=== PATIENT | male | born 1935 | race African-American/Black ===

== ENCOUNTER 2016-09-29 12:17 | Inpatient (IN) | payer MEDICARE ==
[~2016-09-29] VITALS: Ht 172.7 cm; Wt 77.6 kg
[~2016-09-29 12:17] MED LIST: ACET325T9 PO; AMLO2.5T2 PO; ASPI-252 PO; ATEN25TA PO; CIPR500T94 PO; CLOP75TA27 PO; EZET1TAB4 PO; GLIP5TAB10 PO; LISI-334 PO; SIMV20TA3 PO; TAMS0.4C97 PO; TERA5CAP3 PO
[2016-09-29] MEDS ORDERED: ACETAMINOPHEN 500 MG TABLET PO ONE (12:45)
--- NOTE | 2016-09-29 12:49 | PHYS DOC ---
Past Medical History Past Medical History: CVA, Diabetes-Type II, Hypertension, [place], Seizure, Stroke , Other Additional Past Medical Histor: alcoholism Past Surgical History: Angioplasty, Other Additional Past Surgical Histo: with stent placement, cytoscopy Alcohol Use: None Drug Use: None Adult General Chief Complaint Chief Complaint: WEAKNESS/GENERALIZED HPI HPI Patient is a 81 year old male who presents with increased left sided weakness, fever and cough. Family states patient fell yesterday and was unable to get up. No injury from the fall, but the patient required extra assistance from the family to get back up. Patient denies any alcohol use. 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 Patient has a cough that is nonproductive. Patient was unaware that he had a fever. Patient has a history of a stroke with left hemiparesis, heart attack and diabetes. Review of Systems Review of Systems Constitutional: Denies fever or chills Eyes: Denies change in visual acuity, redness, or eye pain HENT: Denies nasal congestion or sore throat Respiratory: Denies shortness of breath. Positive cough Cardiovascular: No chest pain or palpitations GI: Denies abdominal pain, nausea, vomiting, bloody stools or diarrhea : Denies dysuria or hematuria Musculoskeletal: Denies new back pain or joint pain Integument: Denies rash or skin lesions Neurologic: Denies headache, new focal weakness or sensory changes Endocrine: Denies polyuria or polydipsia Current Medications Current Medications Current Medications Medications (Trade) Dose Ordered Sig/Ruby Start Time Stop Time Status Last Admin Dose Admin Acetaminophen (Tylenol) 500 mg 1X ONCE 09/29/16 12:45 09/29/16 12:48 DC 09/29/16 13:37 500 MG Allergies Allergies Allergies Coded Allergies Type Severity Reaction Last Updated Verified No Known Drug Allergies 05/01/14 No Physical Exam Physical Exam Constitutional: Well developed, well nourished, no acute distress, non-toxic appearance. HENT: Normocephalic, atraumatic, bilateral external ears normal, oropharynx moist, no oral exudates, nose normal. Eyes: PERRLA, EOMI, conjunctiva normal, no discharge. Neck: Normal range of motion, no tenderness, supple, no stridor. Cardiovascular:Heart rate regular rhythm, no murmur Lungs & Thorax: Bilateral breath sounds clear to auscultation Abdomen: Bowel sounds normal, soft, no tenderness, no masses, no pulsatile masses. Skin: Warm, dry, no erythema, no rash. Back: No tenderness, no CVA tenderness. Extremities: No tenderness, no cyanosis, no edema. Neurologic: Alert and oriented X 3, decreased left motor function, normal sensory function. Psychologic: Affect normal, judgement normal, mood normal. Current Patient Data Vital Signs Vital Signs Date Time Temp Pulse Resp B/P Pulse Ox O2 Delivery O2 Flow Rate FiO2 09/29/16 16:37 56 20 174/80 97 Room Air 09/29/16 12:27 101.3 101.3 Lab Values Laboratory Tests Test 09/29/16 13:20 White Blood Count 7.2x10^3/uL (4.0-11.0) Red Blood Count 5.14x10^6/uL (4.30-5.70) Hemoglobin 14.9g/dL (13.0-17.5) Hematocrit 44.4% (39.0-53.0) Mean Corpuscular Volume 86fL (79-100) Mean Corpuscular Hemoglobin 29pg (25-35) Mean Corpuscular Hemoglobin Concent 34g/dL (31-37) Red Cell Distribution Width 14.4% (11.5-14.5) Platelet Count 143x10^3/uL (140-400) Neutrophils (%) (Auto) 86% (31-73) H Lymphocytes (%) (Auto) 5% (24-48) L Monocytes (%) (Auto) 9% (0-9) Eosinophils (%) (Auto) 0% (0-3) Basophils (%) (Auto) 0% (0-3) Neutrophils # (Auto) 6.2x10^3uL (1.8-7.7) Lymphocytes # (Auto) 0.4x10^3/uL (1.0-4.8) L Monocytes # (Auto) 0.6x10^3/uL (0.0-1.1) Eosinophils # (Auto) 0.0x10^3/uL (0.0-0.7) Basophils # (Auto) 0.0x10^3/uL (0.0-0.2) Segmented Neutrophils % 78% (35-66) H Band Neutrophils % 6% (0-9) Lymphocytes % 6% (24-48) L Monocytes % 10% (0-10) Platelet Estimate Adequate (ADEQUATE) Sodium Level 141mmol/L (136-145) Potassium Level 4.0mmol/L (3.5-5.1) Chloride Level 103mmol/L (98-107) Carbon Dioxide Level 30mmol/L (21-32) Anion Gap 8 (6-14) Blood Urea Nitrogen 16mg/dL (8-26) Creatinine 1.2mg/dL (0.7-1.3) Estimated GFR (Cockcroft-Gault) 70.3 BUN/Creatinine Ratio 13 (6-20) Glucose Level 165mg/dL (70-99) H Lactic Acid Level 1.9mmol/L (0.4-2.0) Calcium Level 8.7mg/dL (8.5-10.1) Total Bilirubin 0.6mg/dL (0.2-1.0) Aspartate Amino Transferase (AST) 44U/L (15-37) H Alanine Aminotransferase (ALT) 29U/L (16-63) Alkaline Phosphatase 65U/L (46-116) Troponin I Quantitative 0.059ng/mL (0.000-0.055) Total Protein 6.6g/dL (6.4-8.2) Albumin 3.6g/dL (3.4-5.0) Albumin/Globulin Ratio 1.2 (1.0-1.7) Laboratory Tests 09/29/16 13:20 Laboratory Tests 09/29/16 13:20 EKG EKG NSR, HR 65, LAD, LAFB. No STEMI[] Radiology/Procedures Radiology/Procedures [] Course & Med Decision Making Course & Med Decision Making Pertinent Labs and Imaging studies reviewed. (See chart for details) Discussed case with at 1744 and he agreed to admit the patient for Dr. Keyes. Patient is not a TPA candidate because he has been having left sided increased weakness for greater than 12 hours. Dragon Disclaimer Dragon Disclaimer This electronic medical record was generated, in whole or in part, using a voice recognition dictation system. Departure Departure Impression: Primary Impression: Bradycardia Additional Impressions: TIA (transient ischemic attack) Fever Disposition: 09 ADMITTED INPATIENT Admitting Physician: Deepika Keyes Condition: STABLE Referrals: DEEPIKA KEYES MD (PCP) Problem Qualifiers Additional Impressions: TIA (transient ischemic attack) Transient cerebral ischemia type: unspecified Qualified Code: G45.9 - Transient cerebral ischemic attack, unspecified Fever Fever type: unspecified Qualified Code: R50.9 - Fever, unspecified DENVER RICHARDSON MD Sep 29, 2016 12:48
--- NOTE | 2016-09-29 13:04 | RAD ---
Portable chest, 09/29/2016: History: Cough and fever The heart size is normal. There is calcific plaquing of the aorta. The pulmonary vascularity is normal. No pulmonary infiltrates are seen. There is no evidence of pleural fluid. Moderate spurring is present in the spine. IMPRESSION: No acute cardiopulmonary abnormality is detected.
[2016-09-29 13:39] LABS: BASO % 0 % (0-3); EOS % 0 % (0-3); HEMATOCRIT 44.4 % (39.0-53.0); HEMOGLOBIN 14.9 g/dL (13.0-17.5); LYMPH # 0.4 x10^3/uL (1.0-4.8); LYMPH % 5 % (24-48); MEAN CORPUSCULAR HEMOGLOBIN 29 pg (25-35); MEAN CORPUSCULAR HGB CONC 34 g/dL (31-37); MEAN CORPUSCULAR VOLUME 86 fL (79-100); MONO % 9 % (0-9); NEUT % 86 % (31-73); PLATELET COUNT 143 x10^3/uL (140-400); RED BLOOD COUNT 5.14 x10^6/uL (4.30-5.70); RED CELL DISTRIBUTION WIDTH 14.4 % (11.5-14.5); WHITE BLOOD COUNT 7.2 x10^3/uL (4.0-11.0)
[2016-09-29 13:55] LABS: CALCIUM 8.7 mg/dL (8.5-10.1); CREATININE 1.2 mg/dL (0.7-1.3); GFR 70.3
[2016-09-29 14:10] LABS: ALBUMIN 3.6 g/dL (3.4-5.0); ALBUMIN/GLOBULIN RATIO 1.2 (1.0-1.7); TOTAL BILIRUBIN 0.6 mg/dL (0.2-1.0); TOTAL PROTEIN 6.6 g/dL (6.4-8.2)
--- NOTE | 2016-09-29 14:14 | EKG ---
[facility] [address] [place] [address] Test Date: 2016-09-29 Test Time: 12:34:31 Pat Name: JOSE EDUARDO POSADA Department: Room: Gender: M Coater Smoking Pipe: : [phone] Requested By: DENVER RICHARDSON Order Number: [id number] Reading MD: Measurements Intervals [place] Rate: 65 P: [place]: QRS: -44 QRSD: 110 T: 28 QT: 388 QTc: 408 Interpretive Statements IRREGULAR RHYTHM, NO P-WAVE FOUND ABNORMAL LEFT AXIS DEVIATION LEFT ANTERIOR FASCICULAR BLOCK ABNORMAL ECG RI6.01 No previous ECG available for comparison
[2016-09-29 14:34] LABS: PLT ESTIMATE ADEQUATE (ADEQUATE)
--- NOTE | 2016-09-29 16:34 | RAD ---
Exam performed: CT scan of the head without contrast. Date of Service: 09/29/16. Comparison: CT head without contrast from 01/01/14. Clinical History: Increasing Left-sided weakness. History of previous stroke Technique: Helical acquisitions are obtained from the foramen magnum to the vertex without intravenous administration of contrast. Findings: There is prominence of cortical sulci and ventricular system compatible with age related atrophy. There are areas of low-attenuation in both periventricular deep white matter suggesting small vessel ischemic changes. There is an area of encephalomalacia in the right parieto-occipital region with expected dilatation of the right occipital horn consistent with a chronic infarct. Normal charles-white differentiation is maintained. There is no extra axial fluid collection, intraparenchymal hemorrhage or mass lesion. The visualized portions of the orbits, paranasal sinuses and the mastoid air cells appear clear. The calvarium is intact. Impression: 1. Age-appropriate atrophy without any acute intracranial process. 2. Chronic right parieto-occipital encephalomalacia PQRS Compliance Statement: One or more of the following individualized dose reduction techniques were utilized for this examination: 1. Automated exposure control 2. Adjustment of the mA and/or kV according to patient size 3. Use of iterative reconstruction technique
[2016-09-29] MEDS ORDERED: LIDOCAINE 2% JELLY 6ML IN APPLICATOR. MM ONE (16:45)
--- NOTE | 2016-09-29 19:32 | ACF ---
Admission Forms Criteria TRANSIENT ISCHEMIC ATTACK (TIA) Clinical Indications for Admission to Inpatient Care (Place 'X' for any and all applicable criteria): Admission is indicated for ANY ONE of the following(1)(2)(3)(4)(5): [ ]I. Immediate inpatient procedure is needed (eg, endarterectomy). [ ]II. Inpatient admission required rather than observation care (Also use Transient Ischemic Attack (TIA): Observation Care Criteria as appropriate) because of ANY ONE of the following: [ ]a) Focal neurologic signs or symptoms persist or recurring [ ]b) Cardiac arrhythmias of immediate concern [ ]c) Clinically significant cardiac disorder identified that requires inpatient care (eg, severe valvular disease, atrial myxoma, cardiomyopathy) [ ]d) Hypertension requiring inpatient treatment [ ]e) Parenteral anticoagulation required (eg, alternative forms of anticoagulation not appropriate or not feasible) as indicated by ALL of the following(13): [ ]i) Temporary subtherapeutic anticoagulation unacceptable because of high risk of short-term venous or arterial thromboembolism due to ANY ONE of the following(14)(15)(16): [ ]1) Atrial fibrillation suspected as etiology of TIA(17)(18)(19)(20)(21) [ ]2) Venous thromboembolism within past 12 months [ ]3) Underlying malignancy [ ]4) Patient with mechanical cardiac valve(22)( 23) [ ]5) Underlying hypercoagulable state (eg, protein C or protein S deficiency antithrombin deficiency, antiphospholipid antibodies) [ ]6) Patient at temporary high risk of thromboembolism (eg, status post orthopedic surgery) [ ]ii) Contraindications to outpatient use of "bridging" agent or alternative oral anticoagulant[B] as indicated by ALL of the following: [ ]1) Contraindication to outpatient use of low- molecular-weight heparin as "bridging" agent as indicated by ANY ONE of the following(15): [ ]A. Documented current or history of heparin-induced thrombocytopenia(24) [ ]B. Severe thrombocytopenia (eg, platelet count less than 50,000/mm3 (92l038/L) [ ]C. Documented allergy to heparin, low- molecular-weight heparin, or pork products [ ]D. Renal failure (creatinine clearance less than 30 mL/min/1.73m2 (0.50mL/sec/1.73m2) or on dialysis) [ ]E. Inability to manage self-injection ( eg, by patient, caregiver, or visiting nurse) [ ]2) Contraindication to outpatient use of fondaparinux as "bridging" agent as indicated by ANY ONE of the following(25)(26 )(27)(28): [ ]A. Severe thrombocytopenia (eg, platelet count less than 50,000/mm3 (50 x109/L)) [ ]B.Hypersensitivity to fondaparinux, related drugs, or product components [ ]C.Renal failure (creatinine clearance less than 30 mL/min/1.73m2 (0.50mL/sec/1.73m2) or on dialysis) [ ]D.Inability to manage self-injection ( eg, by patient, caregiver, or visiting nurse [ ]3. Oral direct thrombin inhibitor (eg, dabigatran) or oral coagulation factor Xa inhibitor (eg, rivaroxaban, apixaban) not appropriate as oral anticoagulation (eg, indication not appropriate) or contraindicated (eg, hypersensitivity, creatinine clearance less than 15 mL/min/1.73m2 ( 0.25 mL/sec/1.73m2) or on dialysis). [ ]f) Continuous IV infusion of anticoagulant, platelet inhibitor, vasoactive or antiarrhythmia(18)(19) [ ]g) Other condition, treatment, or monitoring requiring inpatient admission [ ]III. Contraindications and/or Inappropriate clinical situations for Observational Care in patients with Transient Ischemic Attack (TIA), when ANY ONE of the following is required: [ ]a) Patient with persistent or severe neurological deficit 24 [ ]b) Patient with acute CVA or other identified pathology should be admitted to inpatient for further care 25 [X ]IV. General contraindications and/or Inappropriate clinical situations for Observational Care in patients with Transient Ischemic Attack (TIA), when ANY ONE of the following is required: [ X]a) Prediction of prolongation of LOS based on ANY ONE of the following may be considered as a contraindication for observational care 2, 3, 4, 5, 6, 7, 8, 9, 10, 11 [ X]i) Age > 65 yrs. [ ]ii) Patient arriving by ambulance [ ]iii) Patient with high acuity [ X]iv) Patient requiring vital sign monitoring [ ]v) Patient on IV medication [ ]b) Systolic blood pressures 180mmHg 3,12 [ ]c) Patient with altered mental status including delirium and other alteration of consciousness, (3) [ ]d) Patient whose discharge disposition will be to a long-term home or rehabilitation home should not be managed in Emergency Department Observation Unit. CMS rule requires 3 days hospital stay before such placement.3,13 [ ]e) Patient with failure to thrive due to broad array of etiologies 3,16,17 [ ]f) Inability to ambulate 3,14 Extended stay beyond goal length of stay may be needed for(4)(30)(32): [ ]a) Parenteral anticoagulation required [ ]b) Dangerous arrhythmia [ ]c) Cardiac valvular disorder, atrial myxoma, cardiomyopathy [ ]d) Uncontrolled severe hypertension [ ]e) Severe carotid stenosis [ ]f) Active comorbidities (eg, heart failure) [ ]g) Extracranial vertebrobasilar disease(29) [ ]h) Clinical evolution of TIA into cerebrovascular accident (stroke) The original [email or web address] content created by [email or web address] has been revised. The portions of thecontent which have been revised are identified through the use of italic text or in bold, and [facility] has neither reviewed nor approved the modified material. All other unmodified content is copyright [email or web address]. Please see references footnoted in the original [facility] edition 2016 Admission Criteria Met?: Yes PORSCHE EDWARDS Sep 29, 2016 19:32
[2016-09-29 20:30] VITALS: BP 169/91
[2016-09-29] MEDS ORDERED: DEXTROSE 50% 25 GM / 50ML DISP.SYRIN. IV PRN (21:00)
[2016-09-29 21:21] LABS: OBC FLU VALID
[2016-09-29] MEDS: IV NORMAL SALINE 1000ML BAG 1,000 ML IV SCH (22:00)
[2016-09-29] MEDS: SIMVASTATIN 20 MG TABLET PO SCH (22:03)
[2016-09-29] MEDS: TAMSULOSIN 0.4 MG CAP.ER.24H. PO SCH (22:03)
[2016-09-29] MEDS: OSELTAMIVIR 30 MG CAPSULE PO SCH (22:03)
[2016-09-29] MEDS: HEPARIN PF for SUB-Q USE 5,000 UNIT/0.5 ML VIAL. SQ SCH (22:08)
[2016-09-29 22:45] VITALS: BP 169/80
[2016-09-30 03:00] VITALS: BP 167/78
[2016-09-30] MEDS: IV NORMAL SALINE 1000ML BAG 1,000 ML IV SCH ×2 (05:51→17:23)
[2016-09-30 07:00] VITALS: BP 176/82
[2016-09-30 07:31] LABS: CREATININE 0.8 mg/dL (0.7-1.3); GFR 112.3; POTASSIUM 3.6 mmol/L (3.5-5.1)
[2016-09-30 07:42] LABS: BASO % 0 % (0-3); EOS % 1 % (0-3); HEMATOCRIT 38.8 % (39.0-53.0); LYMPH # 0.4 x10^3/uL (1.0-4.8); LYMPH % 11 % (24-48); MEAN CORPUSCULAR HEMOGLOBIN 29 pg (25-35); MEAN CORPUSCULAR HGB CONC 34 g/dL (31-37); MEAN CORPUSCULAR VOLUME 87 fL (79-100); MONO % 13 % (0-9); NEUT % 75 % (31-73); PLATELET COUNT 110 x10^3/uL (140-400); RED BLOOD COUNT 4.46 x10^6/uL (4.30-5.70); RED CELL DISTRIBUTION WIDTH 14.2 % (11.5-14.5)
[2016-09-30] MEDS: INSULIN ASPART 300 UNITS/3 ML INSULN.PEN SQ SCH ×3 (08:00→17:00)
[2016-09-30] MEDS: LISINOPRIL 40 MG TABLET. PO SCH (08:50)
[2016-09-30] MEDS: CLOPIDOGREL BISULFATE 75 MG TABLET PO SCH (08:50)
[2016-09-30] MEDS: TAMSULOSIN 0.4 MG CAP.ER.24H. PO SCH ×2 (08:50→21:05)
[2016-09-30] MEDS: ATENOLOL 25 MG TABLET PO SCH (08:50)
[2016-09-30] MEDS: OSELTAMIVIR 30 MG CAPSULE PO SCH ×2 (08:50→21:05)
[2016-09-30] MEDS: HEPARIN PF for SUB-Q USE 5,000 UNIT/0.5 ML VIAL. SQ SCH ×2 (08:54→21:10)
[2016-09-30 11:00] VITALS: BP 166/79
--- NOTE | 2016-09-30 13:57 | PDOC ---
Provider Note Provider Note Pt seen.H&P dictated. #[id number] HENRIK SPARKS MD Sep 30, 2016 13:57
[2016-09-30 14:53] VITALS: BP 150/80
--- NOTE | 2016-09-30 18:31 | HP ---
ADMIT DATE: 09/29/2016 LOCATION: [facility]. ATTENDING PHYSICIAN: Dr. Damian Manley. REASON FOR ADMISSION TO THE HOSPITAL: Weakness, influenza A. HISTORY OF PRESENT ILLNESS: The patient is an 81-year-old male patient of Dr. Damian Manley. The patient has a history of previous stroke, diabetes, hypertension, seizures and heart attack in the past, has been pretty functioning independently at home, he was found to be more weak lately. He was brought to the hospital, he had a fever of 101 and influenza A was positive. The patient was admitted to the hospital. PAST MEDICAL HISTORY: As mentioned above, has a history of CAD in the past, angioplasty and stent placement, diabetes, hypertension, old stroke, seizures. PAST SURGICAL HISTORY: Had a cardiac stent and cystoscopy. ALLERGIES: No known drug allergies. PERSONAL HISTORY: No history of smoking, alcohol or drug abuse. MEDICATIONS AT HOME: Tylenol, atenolol 25 mg daily, Plavix 75 mg daily, lisinopril 40 mg daily, simvastatin 20 mg daily, Flomax 0.4 daily. He was on glipizide 5 mg daily, but we will hold off while he is in the hospital. REVIEW OF SYSTEMS: CARDIAC: No chest pain. LUNGS: No cough, sputum. GASTROINTESTINAL: No nausea or vomiting. NEUROLOGICAL: Has some weakness, generalized. No localized weakness. Rest of the 14 systems was reviewed and negative. PHYSICAL EXAMINATION: GENERAL: The patient is not in any distress. VITAL SIGNS: At the time of admission shows a temperature 101.3, pulse 65, respirations 20, blood pressure 167/79 and 97% on room air. HEENT: Head is atraumatic. Pupils equal. Oral cavity, one teeth present. NECK: Supple. Thyroid not enlarged. JVD not elevated. CHEST: Symmetrical. CARDIOVASCULAR: S1, S2. LUNGS: Clear to auscultation. ABDOMEN: Soft, bowel sounds present, no mass palpable. EXTERNAL GENITALIA: No Panchal. RECTAL: Deferred. EXTREMITIES: No calf tenderness, no edema. Has some flexion contraction of the fingers in the left hand from an old stroke, has a good handgrip, moving upper and lower extremities equally. SKIN: Normal skin turgor. Pulses 1+. NEUROLOGIC: As mentioned above, no definitive weaknesses. LABORATORY DATA: Shows a white count of 7, hemoglobin 15, platelets 143. Electrolytes show sodium 141, potassium 4.0, chloride 103, bicarb 30, BUN 16, creatinine 1.2, glucose 165. LFTs were normal. Troponin 0.[address] head, old stroke. Chest x-ray, was no acute abnormality. EKG negative for ischemia. FINAL IMPRESSION: 1. Fever secondary to influenza A. 2. Weakness secondary to flu. 3. History of old cerebrovascular accident, seizures history and also history of coronary artery disease, previous stent, diabetes, hypertension, hyperlipidemia. PLAN: At this time, admit to hospital, hydrate with IV fluids, isolation, Tamiflu for influenza and see how the patient's condition improves in the next 24-48 hours. HENRIK SPARKS MD DR: DMITRY/suyapa JOB#: [id number] / [id number] HENRIK Henao MD, PRATIP MD MTDD
[2016-09-30 19:00] VITALS: BP 153/77
[2016-09-30] MEDS: ACETAMINOPHEN 325 MG TABLET. PO PRN (21:05)
[2016-09-30] MEDS: SIMVASTATIN 20 MG TABLET PO SCH (21:05)
[2016-09-30 23:00] VITALS: BP 168/80
[2016-10-01 02:46] VITALS: BP 149/52
[2016-10-01] MEDS: IV NORMAL SALINE 1000ML BAG 1,000 ML IV SCH (04:45)
[2016-10-01 07:00] VITALS: BP 158/81
[2016-10-01] MEDS: INSULIN ASPART 300 UNITS/3 ML INSULN.PEN SQ SCH ×3 (08:00→17:00)
[2016-10-01] MEDS: CLOPIDOGREL BISULFATE 75 MG TABLET PO SCH (08:43)
[2016-10-01] MEDS: TAMSULOSIN 0.4 MG CAP.ER.24H. PO SCH ×2 (08:43→21:08)
[2016-10-01] MEDS: ATENOLOL 25 MG TABLET PO SCH (08:44)
[2016-10-01] MEDS: LISINOPRIL 40 MG TABLET. PO SCH (08:44)
[2016-10-01] MEDS: OSELTAMIVIR 30 MG CAPSULE PO SCH ×2 (08:46→08:50)
[2016-10-01] MEDS: HEPARIN PF for SUB-Q USE 5,000 UNIT/0.5 ML VIAL. SQ SCH ×2 (08:50→21:16)
[2016-10-01 11:00] VITALS: BP 167/79
--- NOTE | 2016-10-01 11:09 | PDOC ---
PROGRESS NOTES Subjective Subjective low grade fever 100, otherwise doing well Objective Objective Vital Signs Date Time Temp Pulse Resp B/P Pulse Ox O2 Delivery O2 Flow Rate FiO2 10/01/16 08:44 93 158/81 10/01/16 08:00 Room Air 10/01/16 07:00 97.9 18 94 97.9 Intake and Output 10/01/16 07:00 Intake Total 1478 ml Balance 1478 ml Intake Oral 700 ml IV Total 778 ml # Voids 9 Physical Exam Abdomen: Normal bowel sounds, Soft Heart: Regular rate, Normal S1, Normal S2 Extremities: No clubbing, No cyanosis General: Alert, Oriented X3 MUSCULOSKELETAL: No swelling Neck: Supple Neuro: Normal speech Psych/Mental Status: Mental status NL Skin: No breakdown Diagnosis Problem List Problems Medical Problems: (1) Bradycardia Status: Acute (2) CVA, old, hemiparesis Status: Acute (3) Fever Status: Acute (4) TIA (transient ischemic attack) Status: Acute Assessment Assessment Problems Medical Problems: (1) Bradycardia Status: Acute (2) CVA, old, hemiparesis Status: Acute (3) Fever Status: Acute (4) TIA (transient ischemic attack) Status: Acute FINAL IMPRESSION: 1. Fever secondary to influenza A. 2. Weakness secondary to flu. 3. History of old cerebrovascular accident, seizures history and also history of coronary artery disease, previous stent, diabetes, hypertension, hyperlipidemia. PLAN: d/c iv fluids pt/ot Tamiflu. ?home tomorrow. At this time, admit to hospital, hydrate with IV fluids, isolation, Tamiflu for influenza and see how the patient's condition improves in the next 24-48 hours. Problems: Plan Plan of Care Problems Medical Problems: (1) Bradycardia Status: Acute (2) CVA, old, hemiparesis Status: Acute (3) Fever Status: Acute (4) TIA (transient ischemic attack) Status: Acute Comment Review of Relevant I have reviewed the following items lloyd (where applicable) has been applied. Labs Laboratory Tests Test 09/30/16 11:54 09/30/16 16:45 09/30/16 20:43 10/01/16 08:08 Glucose (Fingerstick) 144mg/dL (70-99) 89mg/dL (70-99) 133mg/dL (70-99) 93mg/dL (70-99) Microbiology 09/29/16 Blood Culture - Preliminary, Resulted NO GROWTH AFTER 1 DAY Medications Current Medications Oseltamivir Phosphate (Tamiflu) 75 mg BID PO Last administered on 10/01/16t 08: 46; Start 10/01/16 at 08:45; Stop 10/06/16 at 08:44 Vitals/I & O Vital Sign - Last 24 Hours 09/30/16 09/30/16 09/30/16 09/30/16 14:53 19:00 20:00 23:00 Temp 97.6 100.4 97.9 97.6 100.4 97.9 Pulse 63 66 102 Resp 18 20 20 B/P 150/80 153/77 168/80 Pulse Ox 95 94 96 O2 Delivery Room Air Room Air Room Air Room Air 10/01/16 10/01/16 10/01/16 10/01/16 02:46 07:00 08:00 08:44 Temp 99.8 97.9 99.8 97.9 Pulse 88 87 93 Resp 18 18 B/P 149/52 158/81 158/81 Pulse Ox 98 94 O2 Delivery Room Air Room Air Room Air 10/01/16 08:44 Pulse 93 B/P 158/81 Intake and Output 09/30/16 09/30/16 10/01/16 15:00 23:00 07:00 Intake Total 1278 ml 200 ml Balance 1278 ml 200 ml HENRIK SPARKS MD Oct 01, 2016 11:09
[2016-10-01 15:00] VITALS: BP 133/66
[2016-10-01 19:20] VITALS: BP 138/73
[2016-10-01] MEDS: OSELTAMIVIR 75 MG CAPSULE PO SCH (21:08)
[2016-10-01] MEDS: SIMVASTATIN 20 MG TABLET PO SCH (21:08)
[2016-10-01 23:00] VITALS: BP 145/56
[2016-10-02 03:30] VITALS: BP 137/90
[2016-10-02 07:00] VITALS: BP 154/80
[2016-10-02] MEDS: INSULIN ASPART 300 UNITS/3 ML INSULN.PEN SQ SCH ×3 (08:00→17:00)
[2016-10-02] MEDS: TAMSULOSIN 0.4 MG CAP.ER.24H. PO SCH ×2 (08:58→20:41)
[2016-10-02] MEDS: OSELTAMIVIR 75 MG CAPSULE PO SCH ×2 (08:58→20:41)
[2016-10-02] MEDS: CLOPIDOGREL BISULFATE 75 MG TABLET PO SCH (08:58)
[2016-10-02] MEDS: LISINOPRIL 40 MG TABLET. PO SCH (08:59)
[2016-10-02] MEDS: ATENOLOL 25 MG TABLET PO SCH (08:59)
[2016-10-02] MEDS: FAMOTIDINE 20 MG TABLET. PO SCH ×2 (09:00→20:41)
--- NOTE | 2016-10-02 09:01 | PDOC ---
SRINIVASAN WESLEY RABBIT BREEDER 10/02/16 0901: IM PROGRESS NOTES- Subjective Subjective feeling okay Objective Objective no distress Vitals Vital Signs Date Time Temp Pulse Resp B/P Pulse Ox O2 Delivery O2 Flow Rate FiO2 10/02/16 07:00 98.6 53 18 154/80 96 Room Air 98.6 Input & Output Intake and Output 10/02/16 07:00 Intake Total 1020 ml Balance 1020 ml Intake Oral 1020 ml # Voids 5 Physical Exam Physical Exam General appearance - alert, ill appearing, and in no distress Mental Status - alert, oriented to person, place, and time, affect appropriate to mood, poor historian Head - normal Chest - clear to auscultation, no wheezes, rales or rhonchi Heart - S1 and S2 normal Abdomen - soft, nontender, nondistended, BS + Neurological - poor memory recall chronic, L sided weakness chronic, no acute neurological deficits noted. Musculoskeletal - no muscular tenderness noted Extremities - no pedal edema Skin - warm and dry Labs Laboratory Tests Test 09/30/16 11:54 09/30/16 16:45 09/30/16 20:43 10/01/16 08:08 Glucose (Fingerstick) 144mg/dL (70-99) 89mg/dL (70-99) 133mg/dL (70-99) 93mg/dL (70-99) Test 10/01/16 12:14 10/01/16 16:57 10/01/16 21:07 10/02/16 07:28 Glucose (Fingerstick) 126mg/dL (70-99) 109mg/dL (70-99) 158mg/dL (70-99) 113mg/dL (70-99) Laboratory Tests Test 10/01/16 12:14 10/01/16 16:57 10/01/16 21:07 10/02/16 07:28 Glucose (Fingerstick) 126mg/dL (70-99) 109mg/dL (70-99) 158mg/dL (70-99) 113mg/dL (70-99) Meds Current Medications Oseltamivir Phosphate (Tamiflu) 75 mg BID PO Last administered on 10/01/16t 21: 08; Start 10/01/16 at 21:00; Stop 2/8/17 at 10:00 Assessment Assessment Problems Medical Problems: (1) Bradycardia Status: Acute (2) CVA, old, hemiparesis Status: Acute (3) Fever Status: Acute (4) TIA (transient ischemic attack) Status: Acute IMPRESSION : 1. influenzae A 2, Bacteremia with +BC grm + cocci clusters 3. hx CVA with left hemiparesis 4. CAD s/p stent 5. HTN 6. HLD 7. hyponatremia improved 8. DM, type II Hba1C 7.0 controlled 9. chronic moderate PCL malnutrition 10. CKD II (Cr Cl 59) PLAN: influenzae A Tamiflu T admit 101.3F Tm 10/01 99.8F lactic acid neg 1.9 Hold discharge Bacteremia BC + 1/4 gram + cocci in clusters ID consult DM II FSBS/SSI BS 89-144 diet control weakness/debility PT OT consult DVT/GI prophylaxis Heparin subq q 12H pepcid oral For further plan of care, please refer to the orders. Hold discharge until eval per ID -plan DC home tomorrow if ID agree. Plan Plan For more details regarding further plans, please refer to the orders. DEEPIKA KEYES MD 10/02/16 1015: IM PROGRESS NOTES- Assessment Assessment The patient was seen and examined by me. Chart reviewed and plan of care formulated. Discussed with, reviewed and agree with BUSINESS ASST's notes, plan of care and orders with modifications as necessary. For more details regarding further plans, please refer to the orders. SRINIVASAN WESLEY APRN Oct 02, 2016 09:01 DEEPIKA KEYES MD Oct 02, 2016 10:15
[2016-10-02] MEDS: HEPARIN PF for SUB-Q USE 5,000 UNIT/0.5 ML VIAL. SQ SCH ×2 (09:02→20:47)
[2016-10-02 09:34] LABS: BASO % 1 % (0-3); EOS % 0 % (0-3); HEMATOCRIT 39.9 % (39.0-53.0); HEMOGLOBIN 13.5 g/dL (13.0-17.5); LYMPH # 0.8 x10^3/uL (1.0-4.8); LYMPH % 24 % (24-48); MEAN CORPUSCULAR HEMOGLOBIN 29 pg (25-35); MEAN CORPUSCULAR HGB CONC 34 g/dL (31-37); MEAN CORPUSCULAR VOLUME 86 fL (79-100); MONO % 10 % (0-9); NEUT % 64 % (31-73); PLATELET COUNT 124 x10^3/uL (140-400); RED BLOOD COUNT 4.65 x10^6/uL (4.30-5.70); RED CELL DISTRIBUTION WIDTH 14.2 % (11.5-14.5); WHITE BLOOD COUNT 3.4 x10^3/uL (4.0-11.0)
[2016-10-02 09:51] LABS: CALCIUM 8.1 mg/dL (8.5-10.1); GFR 86.8; POTASSIUM 4.1 mmol/L (3.5-5.1)
[2016-10-02 11:00] VITALS: BP 166/82
[2016-10-02] MEDS ORDERED: VANCOMYCIN 2 GM in IV NORMAL SALINE 500ML BAG 500 ML IV ONE (11:00)
--- NOTE | 2016-10-02 11:39 | PDOC ---
Infectious Disease Note ROS ROS GEN: Denies fevers, chills, sweats HEENT: Denies blurred vision, sore throat CV: Denies chest pain RESP: Denies shortness of air, cough GI: Denies n/v/d NEURO: Denies confusion, dizziness MSK: Denies weakness, joint pain/swelling Vital Sign Vital Signs Vital Signs Date Time Temp Pulse Resp B/P Pulse Ox O2 Delivery O2 Flow Rate FiO2 10/02/16 11:00 98.1 55 20 166/82 95 Room Air 98.1 Physical Exam PHYSICAL EXAM GENERAL: NAD, Alert HEENT: PERRL, OC/OP NECK: Supple, no JVD, no LN LUNGS: Clear HEART: S1S2, no gallop, no murmur ABD: Soft, NT, no organomegaly, no rebound EXT: No edema, no cyanosis COST MANAGER: Alert, oriented x 3, no focal neurologic deficit SKIN: No rash IV: ok Labs Lab Laboratory Tests Test 10/01/16 12:14 10/01/16 16:57 10/01/16 21:07 10/02/16 07:28 Glucose (Fingerstick) 126mg/dL (70-99) 109mg/dL (70-99) 158mg/dL (70-99) 113mg/dL (70-99) Test 10/02/16 09:10 White Blood Count 3.4x10^3/uL (4.0-11.0) Red Blood Count 4.65x10^6/uL (4.30-5.70) Hemoglobin 13.5g/dL (13.0-17.5) Hematocrit 39.9% (39.0-53.0) Mean Corpuscular Volume 86fL (79-100) Mean Corpuscular Hemoglobin 29pg (25-35) Mean Corpuscular Hemoglobin Concent 34g/dL (31-37) Red Cell Distribution Width 14.2% (11.5-14.5) Platelet Count 124x10^3/uL (140-400) Neutrophils (%) (Auto) 64% (31-73) Lymphocytes (%) (Auto) 24% (24-48) Monocytes (%) (Auto) 10% (0-9) Eosinophils (%) (Auto) 0% (0-3) Basophils (%) (Auto) 1% (0-3) Neutrophils # (Auto) 2.2x10^3uL (1.8-7.7) Lymphocytes # (Auto) 0.8x10^3/uL (1.0-4.8) Monocytes # (Auto) 0.4x10^3/uL (0.0-1.1) Eosinophils # (Auto) 0.0x10^3/uL (0.0-0.7) Basophils # (Auto) 0.0x10^3/uL (0.0-0.2) Sodium Level 139mmol/L (136-145) Potassium Level 4.1mmol/L (3.5-5.1) Chloride Level 104mmol/L (98-107) Carbon Dioxide Level 30mmol/L (21-32) Anion Gap 5 (6-14) Blood Urea Nitrogen 12mg/dL (8-26) Creatinine 1.0mg/dL (0.7-1.3) Estimated GFR (Cockcroft-Gault) 86.8 Glucose Level 133mg/dL (70-99) Calcium Level 8.1mg/dL (8.5-10.1) Magnesium Level 2.0mg/dL (1.8-2.4) Objective Assessment Influenza A 2/3 GPC bacteremia 2/3 Fever Leukopenia - likely viral response DM Plan Plan of Care Cont tamilfu Add Vanc but suspect Contamination F/u labs and cults Thank you # [id number] FREEMAN WHALEN MD Oct 02, 2016 11:39
[2016-10-02 15:00] VITALS: BP 130/56
[2016-10-02] MEDS: VANCOMYCIN PER PHARMACY MC PRN ×2 (15:00→15:09)
[2016-10-02 19:25] VITALS: BP 140/71
[2016-10-02] MEDS: SIMVASTATIN 20 MG TABLET PO SCH (20:41)
[2016-10-02] MEDS: ACETAMINOPHEN 325 MG TABLET. PO PRN (20:41)
[2016-10-02 23:35] VITALS: BP 132/78
[2016-10-03] MEDS ORDERED: VANCOMYCIN 1.25 GM in IV NORMAL SALINE 250ML 250 ML IV SCH (01:00)
[2016-10-03 03:46] VITALS: BP 137/63
--- NOTE | 2016-10-03 05:20 | CONS ---
DATE OF CONSULTATION: 10/02/2016 The patient is in room 652. REQUESTING PHYSICIAN: Dr. Manley. REASON FOR CONSULTATION: Bacteremia. HISTORY OF PRESENT ILLNESS: The patient is a pleasant 81-year-old gentleman with history of previous stroke as well as diabetes who has a fairly acute onset of weakness at home. Apparently, he states that his states he did not look well and he was brought to [facility], had a fever up to 101. He subsequently was found to have influenza A. He started on Tamiflu. Fevers have fallen down. Blood cultures were obtained on the , today one of them returned positive for gram-positive cocci and hence we have been consulted. Currently, the patient is lying in bed, states he is feeling somewhat better. He had a good breakfast and denies any active fever, chills or sweats. He has no headaches or sinus issues or sore throat or cough. No chest pain. No dysuria, frequency or urgency. Denies any falls or trauma. PAST MEDICAL HISTORY: Positive for coronary artery disease, diabetes, hypertension, previous CVA, history of seizures. PAST SURGICAL HISTORY: Positive for angioplasty, cystoscopy and stent placements. REVIEW OF SYSTEMS: Otherwise negative except for mentioned above. ALLERGIES: No known drug allergies. SOCIAL HISTORY: Negative for tobacco, although he does have a distant history of that, no alcohol or drug abuse. FAMILY HISTORY: Noncontributory. CURRENT MEDICATIONS: Include Tamiflu, Plavix, subcutaneous heparin, Prinivil, insulin, Zocor, Flomax. Other meds are available and reviewed in the chart. PHYSICAL EXAMINATION: VITAL SIGNS: He has been afebrile recently, did have a temperature of 100.4 axillary on the , temperature currently 98.1, pulse 55, respirations 20, blood pressure 166/82, satting 95% on room air. CONSTITUTIONAL: He is very pleasant, cooperative, in no acute distress. He is lying in bed. HEENT: Pupils are status post cataract surgery. Oral cavity, pharynx is clear. NECK: Supple. Neck was without JVD. LUNGS: Clear to auscultation bilaterally. HEART: S1, S2. ABDOMEN: Soft, nontender, nondistended, positive bowel sounds. EXTREMITIES: No clubbing, cyanosis or gross edema. SKIN: Warm to touch without signs of rash. NEUROLOGIC: He moved all extremities. PSYCHIATRIC: His affect was pleasant. LABORATORY VALUES: White count 3.4, hemoglobin of 13.5, platelets of 124 with neutrophils of 64, lymphs were 24. Glucose 133 and creatinine of 1. RADIOLOGICAL STUDIES: Chest x-ray from the 3rd, no acute pulmonary abnormality detected. CT scan of the head, age appropriate atrophy, chronic right parietal occipital encephalomalacia, no acute process. IMPRESSION: 1. Influenza A from the 3rd. 2. Gram-positive bacteremia from the 3rd. 3. Fever. 4. Leukopenia, likely viral response. 5. Diabetes. RECOMMENDATIONS: For now, given the gram-positive bacteremia, we will add vancomycin. We will continue the Tamiflu. I suspect his cultures are contamination, but will await for confirmation. Follow up on labs and cultures. Thank you for allowing me to participate in the patient's care. If you have any questions, please do not hesitate to contact me. FREEMAN WHALEN MD DR: GORDON/suyapa JOB#: [id number] / [id number]
[2016-10-03 08:00] VITALS: BP 142/55
[2016-10-03] MEDS: INSULIN ASPART 300 UNITS/3 ML INSULN.PEN SQ SCH ×3 (08:00→17:00)
[2016-10-03 08:02] LABS: BASO % 1 % (0-3); EOS % 1 % (0-3); HEMATOCRIT 35.8 % (39.0-53.0); HEMOGLOBIN 12.1 g/dL (13.0-17.5); LYMPH # 0.7 x10^3/uL (1.0-4.8); LYMPH % 19 % (24-48); MEAN CORPUSCULAR HEMOGLOBIN 29 pg (25-35); MEAN CORPUSCULAR HGB CONC 34 g/dL (31-37); MEAN CORPUSCULAR VOLUME 86 fL (79-100); MONO % 9 % (0-9); NEUT % 71 % (31-73); PLATELET COUNT 116 x10^3/uL (140-400); RED BLOOD COUNT 4.14 x10^6/uL (4.30-5.70); RED CELL DISTRIBUTION WIDTH 14.1 % (11.5-14.5); WHITE BLOOD COUNT 3.8 x10^3/uL (4.0-11.0)
--- NOTE | 2016-10-03 08:47 | PDOC ---
Infectious Disease Note Subjective Subjective No complaints this morning. ROS ROS GEN: Denies fevers, chills, sweats HEENT: Denies blurred vision, sore throat CV: Denies chest pain RESP: Denies shortness of air, cough GI: Denies n/v/d NEURO: Denies confusion, dizziness MSK: Denies weakness, joint pain/swelling Vital Sign Vital Signs Vital Signs Date Time Temp Pulse Resp B/P Pulse Ox O2 Delivery O2 Flow Rate FiO2 10/03/16 03:46 98.4 54 18 137/63 97 Room Air 98.4 Physical Exam PHYSICAL EXAM GENERAL: NAD, Alert HEENT: PERRL, OC/OP - clear NECK: Supple, no JVD, no LN LUNGS: Clear HEART: S1S2, no gallop, no murmur ABD: Soft, NT, no organomegaly, no rebound EXT: No edema, no cyanosis BUSINESS SUPPORT MANAGER: Alert, oriented x 3, no focal neurologic deficit SKIN: No rash IV: ok Labs Lab Laboratory Tests Test 10/02/16 09:10 10/02/16 11:58 10/02/16 16:51 10/02/16 21:33 White Blood Count 3.4x10^3/uL (4.0-11.0) Red Blood Count 4.65x10^6/uL (4.30-5.70) Hemoglobin 13.5g/dL (13.0-17.5) Hematocrit 39.9% (39.0-53.0) Mean Corpuscular Volume 86fL (79-100) Mean Corpuscular Hemoglobin 29pg (25-35) Mean Corpuscular Hemoglobin Concent 34g/dL (31-37) Red Cell Distribution Width 14.2% (11.5-14.5) Platelet Count 124x10^3/uL (140-400) Neutrophils (%) (Auto) 64% (31-73) Lymphocytes (%) (Auto) 24% (24-48) Monocytes (%) (Auto) 10% (0-9) Eosinophils (%) (Auto) 0% (0-3) Basophils (%) (Auto) 1% (0-3) Neutrophils # (Auto) 2.2x10^3uL (1.8-7.7) Lymphocytes # (Auto) 0.8x10^3/uL (1.0-4.8) Monocytes # (Auto) 0.4x10^3/uL (0.0-1.1) Eosinophils # (Auto) 0.0x10^3/uL (0.0-0.7) Basophils # (Auto) 0.0x10^3/uL (0.0-0.2) Sodium Level 139mmol/L (136-145) Potassium Level 4.1mmol/L (3.5-5.1) Chloride Level 104mmol/L (98-107) Carbon Dioxide Level 30mmol/L (21-32) Anion Gap 5 (6-14) Blood Urea Nitrogen 12mg/dL (8-26) Creatinine 1.0mg/dL (0.7-1.3) Estimated GFR (Cockcroft-Gault) 86.8 Glucose Level 133mg/dL (70-99) Calcium Level 8.1mg/dL (8.5-10.1) Magnesium Level 2.0mg/dL (1.8-2.4) Glucose (Fingerstick) 129mg/dL (70-99) 150mg/dL (70-99) 126mg/dL (70-99) Test 10/03/16 07:25 10/03/16 08:23 White Blood Count 3.8x10^3/uL (4.0-11.0) Red Blood Count 4.14x10^6/uL (4.30-5.70) Hemoglobin 12.1g/dL (13.0-17.5) Hematocrit 35.8% (39.0-53.0) Mean Corpuscular Volume 86fL (79-100) Mean Corpuscular Hemoglobin 29pg (25-35) Mean Corpuscular Hemoglobin Concent 34g/dL (31-37) Red Cell Distribution Width 14.1% (11.5-14.5) Platelet Count 116x10^3/uL (140-400) Neutrophils (%) (Auto) 71% (31-73) Lymphocytes (%) (Auto) 19% (24-48) Monocytes (%) (Auto) 9% (0-9) Eosinophils (%) (Auto) 1% (0-3) Basophils (%) (Auto) 1% (0-3) Neutrophils # (Auto) 2.7x10^3uL (1.8-7.7) Lymphocytes # (Auto) 0.7x10^3/uL (1.0-4.8) Monocytes # (Auto) 0.3x10^3/uL (0.0-1.1) Eosinophils # (Auto) 0.0x10^3/uL (0.0-0.7) Basophils # (Auto) 0.0x10^3/uL (0.0-0.2) Glucose (Fingerstick) 109mg/dL (70-99) Objective Assessment Influenza A 2/3 GPC bacteremia 2/3 Fever Leukopenia - likely viral response DM Plan Plan of Care Cont tamilfu Discont Vanc F/u labs and cults FREEMAN WHALEN MD Oct 03, 2016 08:47
[2016-10-03 08:48] LABS: CALCIUM 7.8 mg/dL (8.5-10.1); CREATININE 0.9 mg/dL (0.7-1.3); POTASSIUM 3.4 mmol/L (3.5-5.1)
[2016-10-03] MEDS: HEPARIN PF for SUB-Q USE 5,000 UNIT/0.5 ML VIAL. SQ SCH ×2 (09:00→23:05)
--- NOTE | 2016-10-03 09:20 | PDOC ---
SRINIVASAN WESLEY DIALYSIS PATIENT CARE TECHNICIAN 10/03/16 0920: IM PROGRESS NOTES- Subjective Subjective feeling okay Objective Objective no distress Vitals Vital Signs Date Time Temp Pulse Resp B/P Pulse Ox O2 Delivery O2 Flow Rate FiO2 10/03/16 08:00 98.9 48 16 142/55 91 Room Air 98.9 Input & Output Intake and Output 10/03/16 07:00 Intake Total 1400 ml Balance 1400 ml Intake Oral 900 ml IV Total 500 ml # Voids 2 Physical Exam Physical Exam General appearance - alert, ill appearing, and in no distress Mental Status - alert, oriented to person, place, and time, affect appropriate to mood, poor historian Head - normal Chest - clear to auscultation, no wheezes, rales or rhonchi Heart - S1 and S2 normal Abdomen - soft, nontender, nondistended, BS + Neurological - poor memory recall chronic, L sided weakness chronic, no acute neurological deficits noted. Musculoskeletal - no muscular tenderness noted Extremities - no pedal edema Skin - warm and dry Labs Laboratory Tests Test 10/01/16 12:14 10/01/16 16:57 10/01/16 21:07 10/02/16 07:28 Glucose (Fingerstick) 126mg/dL (70-99) 109mg/dL (70-99) 158mg/dL (70-99) 113mg/dL (70-99) Test 10/02/16 09:10 10/02/16 11:58 10/02/16 16:51 10/02/16 21:33 White Blood Count 3.4x10^3/uL (4.0-11.0) Red Blood Count 4.65x10^6/uL (4.30-5.70) Hemoglobin 13.5g/dL (13.0-17.5) Hematocrit 39.9% (39.0-53.0) Mean Corpuscular Volume 86fL (79-100) Mean Corpuscular Hemoglobin 29pg (25-35) Mean Corpuscular Hemoglobin Concent 34g/dL (31-37) Red Cell Distribution Width 14.2% (11.5-14.5) Platelet Count 124x10^3/uL (140-400) Neutrophils (%) (Auto) 64% (31-73) Lymphocytes (%) (Auto) 24% (24-48) Monocytes (%) (Auto) 10% (0-9) Eosinophils (%) (Auto) 0% (0-3) Basophils (%) (Auto) 1% (0-3) Neutrophils # (Auto) 2.2x10^3uL (1.8-7.7) Lymphocytes # (Auto) 0.8x10^3/uL (1.0-4.8) Monocytes # (Auto) 0.4x10^3/uL (0.0-1.1) Eosinophils # (Auto) 0.0x10^3/uL (0.0-0.7) Basophils # (Auto) 0.0x10^3/uL (0.0-0.2) Sodium Level 139mmol/L (136-145) Potassium Level 4.1mmol/L (3.5-5.1) Chloride Level 104mmol/L (98-107) Carbon Dioxide Level 30mmol/L (21-32) Anion Gap 5 (6-14) Blood Urea Nitrogen 12mg/dL (8-26) Creatinine 1.0mg/dL (0.7-1.3) Estimated GFR (Cockcroft-Gault) 86.8 Glucose Level 133mg/dL (70-99) Calcium Level 8.1mg/dL (8.5-10.1) Magnesium Level 2.0mg/dL (1.8-2.4) Glucose (Fingerstick) 129mg/dL (70-99) 150mg/dL (70-99) 126mg/dL (70-99) Test 10/03/16 07:25 10/03/16 08:23 White Blood Count 3.8x10^3/uL (4.0-11.0) Red Blood Count 4.14x10^6/uL (4.30-5.70) Hemoglobin 12.1g/dL (13.0-17.5) Hematocrit 35.8% (39.0-53.0) Mean Corpuscular Volume 86fL (79-100) Mean Corpuscular Hemoglobin 29pg (25-35) Mean Corpuscular Hemoglobin Concent 34g/dL (31-37) Red Cell Distribution Width 14.1% (11.5-14.5) Platelet Count 116x10^3/uL (140-400) Neutrophils (%) (Auto) 71% (31-73) Lymphocytes (%) (Auto) 19% (24-48) Monocytes (%) (Auto) 9% (0-9) Eosinophils (%) (Auto) 1% (0-3) Basophils (%) (Auto) 1% (0-3) Neutrophils # (Auto) 2.7x10^3uL (1.8-7.7) Lymphocytes # (Auto) 0.7x10^3/uL (1.0-4.8) Monocytes # (Auto) 0.3x10^3/uL (0.0-1.1) Eosinophils # (Auto) 0.0x10^3/uL (0.0-0.7) Basophils # (Auto) 0.0x10^3/uL (0.0-0.2) Sodium Level 141mmol/L (136-145) Potassium Level 3.4mmol/L (3.5-5.1) Chloride Level 107mmol/L (98-107) Carbon Dioxide Level 25mmol/L (21-32) Anion Gap 9 (6-14) Blood Urea Nitrogen 12mg/dL (8-26) Creatinine 0.9mg/dL (0.7-1.3) Estimated GFR (Cockcroft-Gault) 98.0 Glucose Level 111mg/dL (70-99) Calcium Level 7.8mg/dL (8.5-10.1) Glucose (Fingerstick) 109mg/dL (70-99) Laboratory Tests Test 10/02/16 11:58 10/02/16 16:51 10/02/16 21:33 10/03/16 07:25 Glucose (Fingerstick) 129mg/dL (70-99) 150mg/dL (70-99) 126mg/dL (70-99) White Blood Count 3.8x10^3/uL (4.0-11.0) Red Blood Count 4.14x10^6/uL (4.30-5.70) Hemoglobin 12.1g/dL (13.0-17.5) Hematocrit 35.8% (39.0-53.0) Mean Corpuscular Volume 86fL (79-100) Mean Corpuscular Hemoglobin 29pg (25-35) Mean Corpuscular Hemoglobin Concent 34g/dL (31-37) Red Cell Distribution Width 14.1% (11.5-14.5) Platelet Count 116x10^3/uL (140-400) Neutrophils (%) (Auto) 71% (31-73) Lymphocytes (%) (Auto) 19% (24-48) Monocytes (%) (Auto) 9% (0-9) Eosinophils (%) (Auto) 1% (0-3) Basophils (%) (Auto) 1% (0-3) Neutrophils # (Auto) 2.7x10^3uL (1.8-7.7) Lymphocytes # (Auto) 0.7x10^3/uL (1.0-4.8) Monocytes # (Auto) 0.3x10^3/uL (0.0-1.1) Eosinophils # (Auto) 0.0x10^3/uL (0.0-0.7) Basophils # (Auto) 0.0x10^3/uL (0.0-0.2) Sodium Level 141mmol/L (136-145) Potassium Level 3.4mmol/L (3.5-5.1) Chloride Level 107mmol/L (98-107) Carbon Dioxide Level 25mmol/L (21-32) Anion Gap 9 (6-14) Blood Urea Nitrogen 12mg/dL (8-26) Creatinine 0.9mg/dL (0.7-1.3) Estimated GFR (Cockcroft-Gault) 98.0 Glucose Level 111mg/dL (70-99) Calcium Level 7.8mg/dL (8.5-10.1) Test 10/03/16 08:23 Glucose (Fingerstick) 109mg/dL (70-99) Meds Current Medications Vancomycin HCl 1 each 1 each 1X ONCE MC ; Start 10/04/16 at 00:30; Stop 10/04/16 at 00:31 Vancomycin HCl 1 each 1 each PRN DAILY PRN MC SEE COMMENTS Last administered on 10/02/16 15:09; Start 10/02/16 at 11:00 Vancomycin HCl/ Sodium Chloride (Iv Sodium Chloride 0.9% 250ml) 250 ml @ 167 mls/hr Q12H IV Last administered on 2/7/17at 02:25; Start 10/03/16 at 01:00 Vancomycin HCl/ Sodium Chloride (Iv Sodium Chloride 0.9% 500ml Bag) 500 ml @ 250 mls/hr 1X ONCE IV Last administered on 10/02/16 12:40; Start 10/02/16 at 11 :00; Stop 10/02/16 at 12:59; Status DC Assessment Assessment IMPRESSION: 1. influenzae A 2, Bacteremia with +BC grm + cocci clusters 3. hx CVA with left hemiparesis 4. CAD s/p stent 5. HTN 6. HLD 7. hyponatremia improved 8. DM, type II 9. chronic moderate PCL malnutrition 10. CKD II (Cr Cl 59) PLAN: influenzae A Tamiflu T admit 101.3F Tm 10/01 99.8F lactic acid neg 1.9 Hold discharge 10/02 TM 100.8F Bacteremia BC + 1/4 gram + cocci in clusters ID consult Vancomycin suspect contamination DM II FSBS/SSI BS 109-150 diet control weakness/debility PT OT consult DVT/GI prophylaxis Heparin subq q 12H pepcid oral Anemia/thrombocytopenia/leukpenia Admit Hgb 14.9 10/03 12.1 Plt 143 116 WBC 7.2 3.8 monitor hypokalemia Admit 4.0 10/03 3.4 KCL 20 mEq po today, recheck in AM For further plan of care, please refer to the orders. Plan Plan For more details regarding further plans, please refer to the orders. DEEPIKA KEYES MD 10/03/16 1015: IM PROGRESS NOTES- Assessment Assessment The patient was seen and examined by me. Chart reviewed and plan of care formulated. Discussed with, reviewed and agree with SUPERVISOR SANDING's notes, plan of care and orders with modifications as necessary. For more details regarding further plans, please refer to the orders. SRINIVASAN WESLEY APRN Oct 03, 2016 09:20 DEEPIKA KEYES MD Oct 03, 2016 10:15
[2016-10-03] MEDS ORDERED: POTASSIUM CHLORIDE 20 MEQ TABLET.ER. PO ONE (09:30)
[2016-10-03] MEDS: CLOPIDOGREL BISULFATE 75 MG TABLET PO SCH (09:56)
[2016-10-03] MEDS: FAMOTIDINE 20 MG TABLET. PO SCH ×2 (09:56→23:06)
[2016-10-03] MEDS: LISINOPRIL 40 MG TABLET. PO SCH (09:56)
[2016-10-03] MEDS: TAMSULOSIN 0.4 MG CAP.ER.24H. PO SCH ×2 (09:56→23:03)
[2016-10-03] MEDS: OSELTAMIVIR 75 MG CAPSULE PO SCH ×2 (09:57→23:03)
[2016-10-03] MEDS: ATENOLOL 25 MG TABLET PO SCH (09:57)
[2016-10-03 11:16] VITALS: BP 162/70
[2016-10-03 14:43] VITALS: BP 135/62
[2016-10-03 19:54] VITALS: BP 164/72
[2016-10-03] MEDS: SIMVASTATIN 20 MG TABLET PO SCH (23:02)
[2016-10-03 23:33] VITALS: BP 140/50
[2016-10-04 03:58] VITALS: BP 191/87
[2016-10-04 06:08] LABS: BASO % 0 % (0-3); EOS % 1 % (0-3); HEMATOCRIT 35.8 % (39.0-53.0); HEMOGLOBIN 12.2 g/dL (13.0-17.5); LYMPH # 0.8 x10^3/uL (1.0-4.8); LYMPH % 18 % (24-48); MEAN CORPUSCULAR HEMOGLOBIN 30 pg (25-35); MEAN CORPUSCULAR HGB CONC 34 g/dL (31-37); MEAN CORPUSCULAR VOLUME 87 fL (79-100); MONO % 9 % (0-9); NEUT % 73 % (31-73); PLATELET COUNT 119 x10^3/uL (140-400); RED BLOOD COUNT 4.14 x10^6/uL (4.30-5.70); WHITE BLOOD COUNT 4.6 x10^3/uL (4.0-11.0)
[2016-10-04 06:19] LABS: CALCIUM 8.1 mg/dL (8.5-10.1); CREATININE 0.9 mg/dL (0.7-1.3); POTASSIUM 3.4 mmol/L (3.5-5.1)
[2016-10-04 07:50] VITALS: BP 168/77
[2016-10-04] MEDS: TAMSULOSIN 0.4 MG CAP.ER.24H. PO SCH (07:58)
[2016-10-04] MEDS: OSELTAMIVIR 75 MG CAPSULE PO SCH (07:58)
[2016-10-04 07:59] VITALS: BP 191/87
[2016-10-04] MEDS: FAMOTIDINE 20 MG TABLET. PO SCH (07:59)
[2016-10-04] MEDS: CLOPIDOGREL BISULFATE 75 MG TABLET PO SCH (07:59)
[2016-10-04] MEDS: ATENOLOL 25 MG TABLET PO SCH (07:59)
[2016-10-04] MEDS: LISINOPRIL 40 MG TABLET. PO SCH (07:59)
[2016-10-04] MEDS: INSULIN ASPART 300 UNITS/3 ML INSULN.PEN SQ SCH (08:00)
[2016-10-04] MEDS: HEPARIN PF for SUB-Q USE 5,000 UNIT/0.5 ML VIAL. SQ SCH (08:14)
--- NOTE | 2016-10-04 08:55 | PDOC3 ---
SCOTTIEMALENASRINIVASAN WATCH TECHNICIAN 10/04/16 0855: IM DISCHARGE & PROGRESS NOTES Date of Admission Date of Admission Date of Admission: Sep 29, 2016 at 16:39 Date of Discharge Date of Discharge 10/04/16 Primary Diagnosis Primary Diagnosis IMPRESSION: 1. influenzae A no sepsis 2, Bacteremia negative, +BC grm + cocci clusters = contamination 3. hx CVA with left hemiparesis chronic 4. CAD h/o stent 5. HTN 6. HLD 7. hyponatremia improved 8. DM, type II 9. chronic moderate PCL malnutrition 10. CKD II (Cr Cl 59) 11. severe weakness and debility Consults Consults Moise Garcia MD Procedures Procedures None Labs Labs Laboratory Tests Test 10/01/16 12:14 10/01/16 16:57 10/01/16 21:07 10/02/16 07:28 Glucose (Fingerstick) 126mg/dL (70-99) 109mg/dL (70-99) 158mg/dL (70-99) 113mg/dL (70-99) Test 10/02/16 09:10 10/02/16 11:58 10/02/16 16:51 10/02/16 21:33 White Blood Count 3.4x10^3/uL (4.0-11.0) Red Blood Count 4.65x10^6/uL (4.30-5.70) Hemoglobin 13.5g/dL (13.0-17.5) Hematocrit 39.9% (39.0-53.0) Mean Corpuscular Volume 86fL (79-100) Mean Corpuscular Hemoglobin 29pg (25-35) Mean Corpuscular Hemoglobin Concent 34g/dL (31-37) Red Cell Distribution Width 14.2% (11.5-14.5) Platelet Count 124x10^3/uL (140-400) Neutrophils (%) (Auto) 64% (31-73) Lymphocytes (%) (Auto) 24% (24-48) Monocytes (%) (Auto) 10% (0-9) Eosinophils (%) (Auto) 0% (0-3) Basophils (%) (Auto) 1% (0-3) Neutrophils # (Auto) 2.2x10^3uL (1.8-7.7) Lymphocytes # (Auto) 0.8x10^3/uL (1.0-4.8) Monocytes # (Auto) 0.4x10^3/uL (0.0-1.1) Eosinophils # (Auto) 0.0x10^3/uL (0.0-0.7) Basophils # (Auto) 0.0x10^3/uL (0.0-0.2) Sodium Level 139mmol/L (136-145) Potassium Level 4.1mmol/L (3.5-5.1) Chloride Level 104mmol/L (98-107) Carbon Dioxide Level 30mmol/L (21-32) Anion Gap 5 (6-14) Blood Urea Nitrogen 12mg/dL (8-26) Creatinine 1.0mg/dL (0.7-1.3) Estimated GFR (Cockcroft-Gault) 86.8 Glucose Level 133mg/dL (70-99) Calcium Level 8.1mg/dL (8.5-10.1) Magnesium Level 2.0mg/dL (1.8-2.4) Glucose (Fingerstick) 129mg/dL (70-99) 150mg/dL (70-99) 126mg/dL (70-99) Test 10/03/16 07:25 10/03/16 08:23 10/03/16 11:51 10/03/16 16:20 White Blood Count 3.8x10^3/uL (4.0-11.0) Red Blood Count 4.14x10^6/uL (4.30-5.70) Hemoglobin 12.1g/dL (13.0-17.5) Hematocrit 35.8% (39.0-53.0) Mean Corpuscular Volume 86fL (79-100) Mean Corpuscular Hemoglobin 29pg (25-35) Mean Corpuscular Hemoglobin Concent 34g/dL (31-37) Red Cell Distribution Width 14.1% (11.5-14.5) Platelet Count 116x10^3/uL (140-400) Neutrophils (%) (Auto) 71% (31-73) Lymphocytes (%) (Auto) 19% (24-48) Monocytes (%) (Auto) 9% (0-9) Eosinophils (%) (Auto) 1% (0-3) Basophils (%) (Auto) 1% (0-3) Neutrophils # (Auto) 2.7x10^3uL (1.8-7.7) Lymphocytes # (Auto) 0.7x10^3/uL (1.0-4.8) Monocytes # (Auto) 0.3x10^3/uL (0.0-1.1) Eosinophils # (Auto) 0.0x10^3/uL (0.0-0.7) Basophils # (Auto) 0.0x10^3/uL (0.0-0.2) Sodium Level 141mmol/L (136-145) Potassium Level 3.4mmol/L (3.5-5.1) Chloride Level 107mmol/L (98-107) Carbon Dioxide Level 25mmol/L (21-32) Anion Gap 9 (6-14) Blood Urea Nitrogen 12mg/dL (8-26) Creatinine 0.9mg/dL (0.7-1.3) Estimated GFR (Cockcroft-Gault) 98.0 Glucose Level 111mg/dL (70-99) Calcium Level 7.8mg/dL (8.5-10.1) Glucose (Fingerstick) 109mg/dL (70-99) 151mg/dL (70-99) 107mg/dL (70-99) Test 10/03/16 21:23 10/04/16 05:15 10/04/16 07:29 10/04/16 07:55 Glucose (Fingerstick) 164mg/dL (70-99) 109mg/dL (70-99) 120mg/dL (70-99) White Blood Count 4.6x10^3/uL (4.0-11.0) Red Blood Count 4.14x10^6/uL (4.30-5.70) Hemoglobin 12.2g/dL (13.0-17.5) Hematocrit 35.8% (39.0-53.0) Mean Corpuscular Volume 87fL (79-100) Mean Corpuscular Hemoglobin 30pg (25-35) Mean Corpuscular Hemoglobin Concent 34g/dL (31-37) Red Cell Distribution Width 14.0% (11.5-14.5) Platelet Count 119x10^3/uL (140-400) Neutrophils (%) (Auto) 73% (31-73) Lymphocytes (%) (Auto) 18% (24-48) Monocytes (%) (Auto) 9% (0-9) Eosinophils (%) (Auto) 1% (0-3) Basophils (%) (Auto) 0% (0-3) Neutrophils # (Auto) 3.3x10^3uL (1.8-7.7) Lymphocytes # (Auto) 0.8x10^3/uL (1.0-4.8) Monocytes # (Auto) 0.4x10^3/uL (0.0-1.1) Eosinophils # (Auto) 0.0x10^3/uL (0.0-0.7) Basophils # (Auto) 0.0x10^3/uL (0.0-0.2) Sodium Level 138mmol/L (136-145) Potassium Level 3.4mmol/L (3.5-5.1) Chloride Level 105mmol/L (98-107) Carbon Dioxide Level 24mmol/L (21-32) Anion Gap 9 (6-14) Blood Urea Nitrogen 10mg/dL (8-26) Creatinine 0.9mg/dL (0.7-1.3) Estimated GFR (Cockcroft-Gault) 98.0 Glucose Level 125mg/dL (70-99) Calcium Level 8.1mg/dL (8.5-10.1) Medications Medications Medications reviewed and reconciled for discharge. Brief hospital course Brief hospital course This 81 year old [place] male who presented with influenzae A was admitted. The following is a summary of his treatment: influenzae A Tamiflu initated 09/29/16 T admit 101.3F Tm 10/01 99.8F lactic acid neg 1.9 Hold discharge 10/02 TM 100.8F Tm99.1F 10/04 fever resolved no sepsis Bacteremia-negative, contaminated spec BC + 1/4 gram + cocci in clusters ID consult Vancomycin contamination DM II FSBS/SSI BS 109-164 diet control weakness/debility PT OT consult SNU at discharge DVT/GI prophylaxis Heparin subq q 12H pepcid oral Anemia/thrombocytopenia/leukpenia Admit Hgb 14.9 10/04 12.2 Plt 143 119 WBC 7.2 4.6 monitor hypokalemia Admit 4.0 10/04 3.4 KCL 20 mEq po today 10/03, recheck in AM Begin KCL 20 meq bid, f/u SNU For more details regarding the past history, family history, social history, surgical history and other details, please refer to History and Physical. Completed Tamiflu x 5days. Remains weak and would benefit from PT OT. Mrs Levi cannot manage his care at this time due to his weakness. He will be discharged to SNU. Please see discharge orders. Subjective feeling okay Objective no distress Vitals Vital Signs Date Time Temp Pulse Resp B/P Pulse Ox O2 Delivery O2 Flow Rate FiO2 10/04/16 08:00 Room Air 10/04/16 07:59 60 191/87 10/04/16 07:50 98.7 16 98 98.7 Physical Exam General appearance - alert, chronically ill appearing, and in no distress Mental Status - alert, oriented to person, place, and time, affect appropriate to mood, poor historian Head - normal Chest - clear to auscultation, no wheezes, rales or rhonchi Heart - S1 and S2 normal Abdomen - soft, nontender, nondistended, BS + Neurological - poor memory recall chronic, L sided weakness chronic old CVA no acute neurological deficits noted. Musculoskeletal - no muscular tenderness noted Extremities - no pedal edema Skin - warm and dry Medications Medications reviewed. Allergy Allergies Coded Allergies Type Severity Reaction Last Updated Verified No Known Drug Allergies 05/01/14 No Follow up Admit to Dr. Manley Disposition: Residential facility (PT OT eval and treat) Comments Discharge Management - 35 minutes. For other details please refer to discharge instructions DEEPIKA MANLEY MD 10/04/16 0945: IM DISCHARGE & PROGRESS NOTES Brief hospital course Brief hospital course Improving.The patient was seen and examined by me. Chart reviewed and plan of care formulated. Discussed with, reviewed and agree with FRONT OFFICE MEDICAL ASSISTANT's notes, plan of care and orders with modifications as necessary. For more details regarding further plans, please refer to the orders. SRINIVASAN WESLEY APRN Oct 04, 2016 08:55 DEEPIKA MANLEY MD Oct 04, 2016 09:45
--- NOTE | 2016-10-04 08:57 | DISCH ---
DISCHARGE FINAL DIAGNOSIS Problems Medical Problems: (1) Bradycardia Status: Acute (2) CVA, old, hemiparesis Status: Acute (3) Fever Status: Acute (4) TIA (transient ischemic attack) Status: Acute CONDITION ON DISCHARGE: Stable SNF STAY <30 DAYS: Yes (PT OT eval and treat) POST DISCHARGE ORDERS ACTIVITY ORDERS: Activity as tolerated WEIGHT BEARING STATUS: As tolerated DIET AFTER DISCHARGE: Cardiac CHECKS AFTER DISCHARGE CHECKS AFTER DISCHARGE: Check blood sugar, ac/hs (with SSI ) COMMENTS: VS per routine FOLLOW-UP PHYSICIAN FOLLOW-UP: Admit to Dr. Manley ADDITIONAL FOLLOW-UP: Fax lab to Dr. Manley LAB ORDERS FOR FOLLOW-UP: CBC with diff, CMP, Mg in AM after admit TREATMENT/EQUIPMENT ORDERS ADAPTIVE EQUIPMENT NEEDED: Walker, Wheelchair SRINIVASAN WESLEY APRN Oct 04, 2016 08:57
[2016-10-04] MEDS ORDERED: INSU100I17 SQ (09:00)
[2016-10-04] MEDS ORDERED: FAMO20TA5 PO (09:00)
--- NOTE | 2016-10-04 09:28 | PDOC ---
Infectious Disease Note Subjective Subjective No complaints this morning. ROS ROS GEN: Denies fevers, chills, sweats HEENT: Denies blurred vision, sore throat CV: Denies chest pain RESP: Denies shortness of air, cough GI: Denies n/v/d NEURO: Denies confusion, dizziness MSK: Denies weakness, joint pain/swelling Vital Sign Vital Signs Vital Signs Date Time Temp Pulse Resp B/P Pulse Ox O2 Delivery O2 Flow Rate FiO2 10/04/16 08:00 Room Air 10/04/16 07:59 60 191/87 10/04/16 07:50 98.7 16 98 98.7 Physical Exam PHYSICAL EXAM GENERAL: NAD, Alert, in chair HEENT: PERRL, OC/OP- clear NECK: Supple, no JVD, no LN LUNGS: Clear HEART: S1S2, no gallop, no murmur ABD: Soft, NT, no organomegaly, no rebound EXT: No edema, no cyanosis SALES PROMOTION MANAGER: Alert, oriented x 3, no focal neurologic deficit SKIN: No rash IV: ok Labs Lab Laboratory Tests Test 10/03/16 11:51 10/03/16 16:20 10/03/16 21:23 10/04/16 05:15 Glucose (Fingerstick) 151mg/dL (70-99) 107mg/dL (70-99) 164mg/dL (70-99) White Blood Count 4.6x10^3/uL (4.0-11.0) Red Blood Count 4.14x10^6/uL (4.30-5.70) Hemoglobin 12.2g/dL (13.0-17.5) Hematocrit 35.8% (39.0-53.0) Mean Corpuscular Volume 87fL (79-100) Mean Corpuscular Hemoglobin 30pg (25-35) Mean Corpuscular Hemoglobin Concent 34g/dL (31-37) Red Cell Distribution Width 14.0% (11.5-14.5) Platelet Count 119x10^3/uL (140-400) Neutrophils (%) (Auto) 73% (31-73) Lymphocytes (%) (Auto) 18% (24-48) Monocytes (%) (Auto) 9% (0-9) Eosinophils (%) (Auto) 1% (0-3) Basophils (%) (Auto) 0% (0-3) Neutrophils # (Auto) 3.3x10^3uL (1.8-7.7) Lymphocytes # (Auto) 0.8x10^3/uL (1.0-4.8) Monocytes # (Auto) 0.4x10^3/uL (0.0-1.1) Eosinophils # (Auto) 0.0x10^3/uL (0.0-0.7) Basophils # (Auto) 0.0x10^3/uL (0.0-0.2) Sodium Level 138mmol/L (136-145) Potassium Level 3.4mmol/L (3.5-5.1) Chloride Level 105mmol/L (98-107) Carbon Dioxide Level 24mmol/L (21-32) Anion Gap 9 (6-14) Blood Urea Nitrogen 10mg/dL (8-26) Creatinine 0.9mg/dL (0.7-1.3) Estimated GFR (Cockcroft-Gault) 98.0 Glucose Level 125mg/dL (70-99) Calcium Level 8.1mg/dL (8.5-10.1) Test 10/04/16 07:29 10/04/16 07:55 Glucose (Fingerstick) 109mg/dL (70-99) 120mg/dL (70-99) Objective Assessment Influenza A 2/3 GPC bacteremia 2/3 Fever Leukopenia - likely viral response - better DM Plan Plan of Care Complete Tamiflu Ok to transfer FREEMAN WHALEN MD Oct 04, 2016 09:28
== END 2016-10-04 11:35 | DRG 153 ==
LOC: ER 12:17 → 6 SOUTH 16:39
PROVIDERS: ADMIT Internal Medicine; ATTEND Internal Medicine
DX: J11.1 Influenza due to unidentified influenza virus with other respiratory manifestations (principal); I69.354 Hemiplegia and hemiparesis following cerebral infarction affecting left non-dominant side; E44.0 Moderate protein-calorie malnutrition; E87.1 Hypo-osmolality and hyponatremia; R78.81 Bacteremia; B96.89 Other specified bacterial agents as the cause of diseases classified elsewhere; D64.9 Anemia, unspecified; D69.6 Thrombocytopenia, unspecified; D72.819 Decreased white blood cell count, unspecified; E11.22 Type 2 diabetes mellitus with diabetic chronic kidney disease; E78.5 Hyperlipidemia, unspecified; E87.6 Hypokalemia; I12.9 Hypertensive chronic kidney disease with stage 1 through stage 4 chronic kidney disease, or unspecified chronic kidney disease; N18.2 Chronic kidney disease, stage 2 (mild); I25.10 Atherosclerotic heart disease of native coronary artery without angina pectoris; I25.2 Old myocardial infarction; Z95.5 Presence of coronary angioplasty implant and graft; Z68.26 Body mass index [BMI] 26.0-26.9, adult; Z79.899 Other long term (current) drug therapy
CPT/HCPCS: 36415; 70450; 71010; 80048; 80053; 82947; 83605; 83735; 84484; 85007; 85027; 87040; 87205; 87804; 93005; J1815; J3370; J7030; J7040; J7050; 97110; 97116; 97530; 97535; 99285-25

== ENCOUNTER → 2017-01-29 | Outpatient (CLI) | payer MEDICARE ==
[~2017-01-29] MED LIST changes: +FAMO20TA5 PO; +INSU100I17 SQ
[2017-01-29 14:04] LABS: CALCIUM 8.5 mg/dL (8.5-10.1); GFR 86.8; POTASSIUM 4.1 mmol/L (3.5-5.1)
--- NOTE | 2017-01-29 14:31 | RAD ---
Indication benign prostatic hypertrophy. Assess for potential hydronephrosis. Grayscale imaging was performed targeted to the kidneys. Note is made of a previous examination 03/16/2016. The right kidney measures 11.8 x 5.7 x 5.7 cm. There is a hypoechoic 3.7 cm mass associated with the right kidney compatible with a cyst. A similar finding was referenced on the previous exam. There is no hydronephrosis or solid mass seen associated with the right kidney. The left kidney measures 11 x 4.1 x 3.5 cm and appears unremarkable showing no evidence of hydronephrosis or mass. The urinary bladder appeared grossly normal. The inferior vena cava was largely obscured. The mid and distal abdominal aorta appeared normal. The proximal abdominal aorta was obscured by gas. The prostatic volume was estimated at approximately 130 cc. IMPRESSION: No evidence of hydronephrosis or solid mass seen associated with either kidney. Right renal cyst noted.
== END | disposition home or self-care (01) ==
LOC: US 12:50
PROVIDERS: ATTEND Nurse Practitioner Occupational Health
DX: N40.0 Benign prostatic hyperplasia without lower urinary tract symptoms (principal); N28.1 Cyst of kidney, acquired
CPT/HCPCS: 36415; 76770; 80048; G0103

== ENCOUNTER 2017-03-09 21:55 | Inpatient (IN) | payer MEDICARE ==
[~2017-03-09] VITALS: Ht 172.7 cm; Wt 68.9 kg
[~2017-03-09 21:55] MED LIST changes: -CLOP75TA27 PO; +CLOP75TA57 PO; +EZET1TAB30 PO; -EZET1TAB4 PO
[2017-03-09 22:22] LABS: BASO % 0 % (0-3); EOS % 0 % (0-3); HEMATOCRIT 40.3 % (39.0-53.0); HEMOGLOBIN 13.7 g/dL (13.0-17.5); LYMPH # 0.2 x10^3/uL (1.0-4.8); LYMPH % 1 % (24-48); MEAN CORPUSCULAR HEMOGLOBIN 30 pg (25-35); MEAN CORPUSCULAR HGB CONC 34 g/dL (31-37); MEAN CORPUSCULAR VOLUME 87 fL (79-100); MONO % 5 % (0-9); NEUT % 93 % (31-73); PLATELET COUNT 143 x10^3/uL (140-400); RED BLOOD COUNT 4.62 x10^6/uL (4.30-5.70); RED CELL DISTRIBUTION WIDTH 14.2 % (11.5-14.5); WHITE BLOOD COUNT 17.3 x10^3/uL (4.0-11.0)
[2017-03-09 22:32] LABS: CALCIUM 8.7 mg/dL (8.5-10.1); CREATININE 1.1 mg/dL (0.7-1.3); GFR 77.5; POTASSIUM 3.5 mmol/L (3.5-5.1)
[2017-03-09 22:39] LABS: PLT ESTIMATE ADEQUATE (ADEQUATE)
[2017-03-09] MEDS ORDERED: IV NORMAL SALINE 1000ML BAG 1,000 ML IV ONE (23:15)
--- NOTE | 2017-03-10 00:20 | ED.ADGEN ---
Past Medical History Past Medical History: CVA, Diabetes-Type II, Hypertension, [place], Seizure, Stroke , Other Additional Past Medical Histor: alcoholism Past Surgical History: Angioplasty, Other Additional Past Surgical Histo: with stent placement, cytoscopy Alcohol Use: None Drug Use: None Adult General Chief Complaint Chief Complaint: WEAKNESS/GENERALIZED HPI HPI Patient is a 82 year old -Swiss male with history of CVA, hypertension, diabetes, CAD, BPH, and epilepsy who presents with your office weakness 2 days, all without injury 2 days ago and fever 100.9 today. Patient denies chest pain, cough, shortness of breath, abdominal pain, urinary frequency and urgency. History obtained from the patient patient's spouse. No other acute symptoms or complaints. Review of Systems Review of Systems ROS as per HPI. Current Medications Current Medications Current Medications Medications (Trade) Dose Ordered Sig/Ruby Start Time Stop Time Status Last Admin Dose Admin Levofloxacin/ Dextrose 150 ml @ 100 mls/hr 1X ONCE 03/10/17 00:15 03/10/17 01:44 Sodium Chloride 1,000 ml @ 1,000 mls/hr 1X ONCE 03/09/17 23:15 03/10/17 00:14 DC 03/09/17 23:07 1,000 MLS/HR Allergies Allergies Allergies Coded Allergies Type Severity Reaction Last Updated Verified No Known Drug Allergies 05/01/14 No Physical Exam Physical Exam Constitutional: Generally weak and fatigued appearing, no acute distress. HENT: Normocephalic, atraumatic, bilateral external ears normal, no oral exudates, nose normal. Eyes: PERRLA, EOMI, conjunctiva normal. Neck: Normal range of motion, no tenderness, supple. Cardiovascular:Heart rate regular rhythm, no murmur. Lungs & Thorax: Bilateral breath sounds clear to auscultation. Abdomen: Bowel sounds normal, soft, no tenderness. , tender, swollen, firm high riding right testicle with scrotal erythema/cellulitis. No induration present. No gangrene or cellulitis of perineum. Skin: Warm, dry, no erythema, no rash. Back: No tenderness. Extremities: No tenderness. Neurologic: Alert and oriented, normal motor function, normal sensory function. Psychologic: Affect normal, judgement normal, mood normal. Current Patient Data Vital Signs Vital Signs Date Time Temp Pulse Resp B/P (MAP) Pulse Ox O2 Delivery O2 Flow Rate FiO2 03/09/17 21:58 100.3 78 18 160/78 (105) 94 Room Air 100.3 Lab Values Laboratory Tests Test 03/09/17 22:10 White Blood Count 17.3 x10^3/uL (4.0-11.0) H Red Blood Count 4.62 x10^6/uL (4.30-5.70) Hemoglobin 13.7 g/dL (13.0-17.5) Hematocrit 40.3 % (39.0-53.0) Mean Corpuscular Volume 87 fL (79-100) Mean Corpuscular Hemoglobin 30 pg (25-35) Mean Corpuscular Hemoglobin Concent 34 g/dL (31-37) Red Cell Distribution Width 14.2 % (11.5-14.5) Platelet Count 143 x10^3/uL (140-400) Neutrophils (%) (Auto) 93 % (31-73) H Lymphocytes (%) (Auto) 1 % (24-48) L Monocytes (%) (Auto) 5 % (0-9) Eosinophils (%) (Auto) 0 % (0-3) Basophils (%) (Auto) 0 % (0-3) Neutrophils # (Auto) 16.2 x10^3uL (1.8-7.7) H Lymphocytes # (Auto) 0.2 x10^3/uL (1.0-4.8) L Monocytes # (Auto) 0.9 x10^3/uL (0.0-1.1) Eosinophils # (Auto) 0.0 x10^3/uL (0.0-0.7) Basophils # (Auto) 0.0 x10^3/uL (0.0-0.2) Segmented Neutrophils % 88 % (35-66) H Band Neutrophils % 6 % (0-9) Lymphocytes % 2 % (24-48) L Monocytes % 4 % (0-10) Platelet Estimate Adequate (ADEQUATE) Sodium Level 138 mmol/L (136-145) Potassium Level 3.5 mmol/L (3.5-5.1) Chloride Level 102 mmol/L (98-107) Carbon Dioxide Level 25 mmol/L (21-32) Anion Gap 11 (6-14) Blood Urea Nitrogen 17 mg/dL (8-26) Creatinine 1.1 mg/dL (0.7-1.3) Estimated GFR (Cockcroft-Gault) 77.5 Glucose Level 114 mg/dL (70-99) H Calcium Level 8.7 mg/dL (8.5-10.1) Laboratory Tests 03/09/17 22:10 Laboratory Tests 03/09/17 22:10 EKG EKG [] Radiology/Procedures Radiology/Procedures [Chest x-ray: No acute cardiopulmonary disease] Testicle/scrotal ultrasound: Findings of epididymitis/orchitis present, good blood flow noted to right testis. Course & Med Decision Making Course & Med Decision Making Pertinent Labs and Imaging studies reviewed. (See chart for details) [Patient with orchitis/scrotal cellulitis with temperature of 100.3 and 17,000 white count. Patient's blood pressure and heart rate are stable. Patient does not exhibit any abdominal pain or tenderness on evaluation. Concern for sepsis. IV fluids and IV antibiotics given. Dr. Damian Manley to admit. Patient received cautious IV fluids due to concern for fluid overload due to underlying coronary disease. Dragon Disclaimer Dragon Disclaimer This electronic medical record was generated, in whole or in part, using a voice recognition dictation system. CHARBEL WELLS DO Mar 10, 2017 00:20
--- NOTE | 2017-03-10 00:37 | RAD ---
INDICATION: Testicular pain. COMPARISON: None. TECHNIQUE: Grayscale, color and spectral doppler ultrasound images obtained of the scrotum. FINDINGS: Right Testicle: 35 x 29 x 25 mm. Vascular flow is identified. Left Testicle: 34 x 20 x 19 mm. Vascular flow is identified. Hydrocele is identified with loculations and internal complexity. The right epididymis is enlarged and hypervascular. There is some hypervascularity to the right testicle. Thickening of the right scrotal wall. IMPRESSION: 1. Hypervascularity of the right epididymis and scrotum. Could be seen with causes such as epididymoorchitis. There is also scrotal wall thickening overlying the right testicle as well as a right-sided hydrocele with internal complexity and septations. Electronically signed by: Messi Staley MD (03/10/2017 12:33 AM) [id number]
[2017-03-10] MEDS ORDERED: MORPHINE SULFATE 2 MG/ML DISP.SYRIN. IV PRN ×2 (00:45→12:00)
[2017-03-10] MEDS ORDERED: ONDANSETRON PF 4 MG/2 ML VIAL. IV PRN ×2 (00:45→12:00)
[2017-03-10 01:48] VITALS: BP 135/82
[2017-03-10] MEDS: IV NORMAL SALINE 1000ML BAG 1,000 ML IV SCH ×5 (01:50→22:50)
[2017-03-10 07:00] VITALS: BP 144/66
--- NOTE | 2017-03-10 07:59 | RAD ---
AP chest. History: Fever AP view is taken of the chest. Patient has not taken a deep inspiration. There are no confluent areas of infiltrate. Heart is normal in size. There is minimal linear scarring or atelectasis in the left lung base. There is no effusion. Impression: 1. Linear scarring or atelectasis in the left lung base without other infiltrates.
[2017-03-10 11:00] VITALS: BP 132/62
[2017-03-10] MEDS ORDERED: ACETAMINOPHEN 500 MG TABLET PO PRN (12:00)
--- NOTE | 2017-03-10 12:06 | PDOC1 ---
SRINIVASAN WESLEY PIER HAND HELPER 03/10/17 1206: HISTORY AND PHYSICAL Chief Complaint Chief Complaint This 82 year old male has been admitted with a chief complaint of weakness and fever. The onset of weakness was 2 days ago. He presented to the ED and during the assessment was noted to have R testicular swelling/erythema. US epididymitis/orchitis with good blood flow to the testes. His WBC was 17.5 and lactic acid 2.2. He was given IVF 150 cc/hr with Levaquin 750mg initiated. He is admitted for further evaluation and treatment. Problem List Problems Medical Problems: (1) Orchitis Status: Acute (2) Sepsis Status: Acute Past Medical History Cardiovascular: CAD (stent 1993), CHF (diastolic EF normal ), HTN, [place], Hyperlipidemia, Other CENTRAL NERVOUS SYSTEM: CVA (L hemiparesis ), Dementia, TIA Hepatobiliary: Hep A/B/C Musculoskeletal: Other (mild arthritis ) Renal/: Chronic renal insuff (CKD II ), Benign prostatic enlarg. Endocrine: Diabetes (Type II diet controlled) Past Surgical History PSH cardiac stent, cystoscopy Past Surgical History: No pertinent history Past Family History PFH non contributory Family History: Coronary Artery Disease, Hypertension Past Social History PSH , neg h/o neg tobacco, former ETOH, or neg illicit drug Review of Symptoms Review of Symptoms A 14 point ROS was completed with the following noted as positive: per HPI. Pt does not recall why he came to ED or how long R testicle has been swollen/ painful. Other systems reviewed and negative. Medications Medications reviewed and reconciled Allergy Allergies Coded Allergies Type Severity Reaction Last Updated Verified No Known Drug Allergies 05/01/14 No Physical Exam Physical Exam General appearance - alert, chronically appearing, and in no distress Mental Status - alert, oriented to person, place, affect appropriate to mood Head - normal Chest - clear to auscultation, no wheezes, rales or rhonchi, symmetric air entry Heart - S1 and S2 normal Abdomen - soft, nontender, nondistended, BS + : swelling erythema R testicle, tender Neurological - no acute focal neurological deficits noted Musculoskeletal - no muscular tenderness noted Extremities - no pedal edema Skin - warm and dry VTE Prophylaxis Ordered VTE Prophylaxis Devices: Yes VTE Pharmacological Prophylaxi: No Assessment Labs Laboratory Tests Test 03/09/17 22:10 7/15/17 06:45 03/10/17 07:17 03/10/17 11:38 White Blood Count 17.3 x10^3/uL (4.0-11.0) Red Blood Count 4.62 x10^6/uL (4.30-5.70) Hemoglobin 13.7 g/dL (13.0-17.5) Hematocrit 40.3 % (39.0-53.0) Mean Corpuscular Volume 87 fL (79-100) Mean Corpuscular Hemoglobin 30 pg (25-35) Mean Corpuscular Hemoglobin Concent 34 g/dL (31-37) Red Cell Distribution Width 14.2 % (11.5-14.5) Platelet Count 143 x10^3/uL (140-400) Neutrophils (%) (Auto) 93 % (31-73) Lymphocytes (%) (Auto) 1 % (24-48) Monocytes (%) (Auto) 5 % (0-9) Eosinophils (%) (Auto) 0 % (0-3) Basophils (%) (Auto) 0 % (0-3) Neutrophils # (Auto) 16.2 x10^3uL (1.8-7.7) Lymphocytes # (Auto) 0.2 x10^3/uL (1.0-4.8) Monocytes # (Auto) 0.9 x10^3/uL (0.0-1.1) Eosinophils # (Auto) 0.0 x10^3/uL (0.0-0.7) Basophils # (Auto) 0.0 x10^3/uL (0.0-0.2) Segmented Neutrophils % 88 % (35-66) Band Neutrophils % 6 % (0-9) Lymphocytes % 2 % (24-48) Monocytes % 4 % (0-10) Platelet Estimate Adequate (ADEQUATE) Sodium Level 138 mmol/L (136-145) Potassium Level 3.5 mmol/L (3.5-5.1) Chloride Level 102 mmol/L (98-107) Carbon Dioxide Level 25 mmol/L (21-32) Anion Gap 11 (6-14) Blood Urea Nitrogen 17 mg/dL (8-26) Creatinine 1.1 mg/dL (0.7-1.3) Estimated GFR (Cockcroft-Gault) 77.5 Glucose Level 114 mg/dL (70-99) Lactic Acid Level 1.1 mmol/L (0.4-2.0) 2.2 mmol/L (0.4-2.0) Calcium Level 8.7 mg/dL (8.5-10.1) Glucose (Fingerstick) 93 mg/dL (70-99) 134 mg/dL (70-99) Laboratory Tests Test 03/09/17 22:10 03/10/17 06:45 03/10/17 07:17 03/10/17 11:38 White Blood Count 17.3 x10^3/uL (4.0-11.0) Red Blood Count 4.62 x10^6/uL (4.30-5.70) Hemoglobin 13.7 g/dL (13.0-17.5) Hematocrit 40.3 % (39.0-53.0) Mean Corpuscular Volume 87 fL (79-100) Mean Corpuscular Hemoglobin 30 pg (25-35) Mean Corpuscular Hemoglobin Concent 34 g/dL (31-37) Red Cell Distribution Width 14.2 % (11.5-14.5) Platelet Count 143 x10^3/uL (140-400) Neutrophils (%) (Auto) 93 % (31-73) Lymphocytes (%) (Auto) 1 % (24-48) Monocytes (%) (Auto) 5 % (0-9) Eosinophils (%) (Auto) 0 % (0-3) Basophils (%) (Auto) 0 % (0-3) Neutrophils # (Auto) 16.2 x10^3uL (1.8-7.7) Lymphocytes # (Auto) 0.2 x10^3/uL (1.0-4.8) Monocytes # (Auto) 0.9 x10^3/uL (0.0-1.1) Eosinophils # (Auto) 0.0 x10^3/uL (0.0-0.7) Basophils # (Auto) 0.0 x10^3/uL (0.0-0.2) Segmented Neutrophils % 88 % (35-66) Band Neutrophils % 6 % (0-9) Lymphocytes % 2 % (24-48) Monocytes % 4 % (0-10) Platelet Estimate Adequate (ADEQUATE) Sodium Level 138 mmol/L (136-145) Potassium Level 3.5 mmol/L (3.5-5.1) Chloride Level 102 mmol/L (98-107) Carbon Dioxide Level 25 mmol/L (21-32) Anion Gap 11 (6-14) Blood Urea Nitrogen 17 mg/dL (8-26) Creatinine 1.1 mg/dL (0.7-1.3) Estimated GFR (Cockcroft-Gault) 77.5 Glucose Level 114 mg/dL (70-99) Lactic Acid Level 1.1 mmol/L (0.4-2.0) 2.2 mmol/L (0.4-2.0) Calcium Level 8.7 mg/dL (8.5-10.1) Glucose (Fingerstick) 93 mg/dL (70-99) 134 mg/dL (70-99) Plan Plan IMPRESSION: 1. epididymitis/orchitis with sepsis 2. CHF diastolic normal EF not acute 3. BPH with h/o BPH 4. CAD with h/o PCI 5. 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 CKD II 8. HTN 7. hyperlipidemia PLAN: epididymitis/orchitis Levaquin 750mg EDIV ID consult Levaquin 500mg IV until ID consult WBC 17.5 LA 2.2 IVF 150cc/hr ED, decrease to 50cc/hr with h/o CHF CKD II Admit BUN 17 Cr 1.1 Na 138 K 3.5 monitor HTN resume home meds DM II FSBS no SSI at this time DVT/GI prophylaxis SCD/NAHID PPI For more details regarding further plans, please refer to the orders. DEEPIKA KEYES MD 03/10/17 1248: HISTORY AND PHYSICAL Plan Plan The patient was seen and examined by me. Chart reviewed and plan of care formulated. Discussed with, reviewed and agree with SUPERVISOR PLATE FORMING's notes, plan of care and orders with modifications as necessary. For more details regarding further plans, please refer to the orders. SRINIVASAN WESLEY APRN Mar 10, 2017 12:06 DEEPIKA KEYES MD Mar 10, 2017 12:48
--- NOTE | 2017-03-10 12:10 | PDOC ---
Provider Note Provider Note Patient seen.see History and Physical. Has mild tenderness f the rt testicle..skin redness of scrotum due to urinary incontinence and irritation. ? Acute rt orchitis/epididymitis. check u/a ,c/s. ID consult. The patient was seen and examined by me. Chart reviewed and plan of care formulated. Discussed with, reviewed and agree with TOBACCO DIPPER's notes, plan of care and orders with modifications as necessary. For more details regarding further plans, please refer to the orders. DEEPIKA KEYES MD Mar 10, 2017 12:10
[2017-03-10] MEDS ORDERED: ACETAMINOPHEN 325 MG TABLET. PO PRN ×2 (13:00)
[2017-03-10] MEDS: FAMOTIDINE 20 MG TABLET. PO SCH ×2 (13:29→20:04)
[2017-03-10] MEDS: ATENOLOL 25 MG TABLET. PO SCH (13:29)
[2017-03-10] MEDS: LISINOPRIL 20 MG TABLET PO SCH (13:29)
[2017-03-10] MEDS: CLOPIDOGREL BISULFATE 75 MG TABLET PO SCH (13:29)
[2017-03-10] MEDS: TAMSULOSIN 0.4 MG CAP.ER.24H. PO SCH ×2 (13:31→20:04)
[2017-03-10 15:00] VITALS: BP 139/62
[2017-03-10] MEDS ORDERED: FINA5TAB4 PO (15:25)
[2017-03-10] MEDS ORDERED: AMLO2.5T PO (15:25)
[2017-03-10] MEDS: INSULIN ASPART 300 UNITS/3 ML INSULN.PEN SQ SCH (16:30)
[2017-03-10 19:59] VITALS: BP 138/60
[2017-03-10] MEDS: SIMVASTATIN 20 MG TABLET PO SCH (20:04)
[2017-03-10 23:53] VITALS: BP 148/46
[2017-03-11] VITALS (7 sets, daily range): BP systolic 126–147; BP diastolic 57–79
--- NOTE | 2017-03-11 02:33 | ACF ---
Admit Criteria Forms Admit Criteria Forms Admit Criteria Forms UROLOGIC DISEASE [facility] Clinical Indications for Admission to Inpatient Care (Place ' X' for any and all applicable criteria): Hospital admission is needed for appropriate care of the patient because of 1 or more of the following: [ ]I. New-onset Reduced urine output, or hydronephrosis remaining after emergency or observation level care (as appropriate ) [ ]II. Renal disease needing inpatient care indicated by 1 or more of the following(2)(3)(4): [ ]a) Acute renal failure [ ]b) Significant uremic complications [ ]c) Acute kidney injury (that does not qualify as Acute renal failure ) requiring inpatient care indicated by ALL of the following(5)(6)(7)(8) (9): [ ]i) Worsening clinical status (eg, rising creatinine) despite outpatient and observation care treatment (eg, hydration) [ ]ii) Acute kidney injury indicated by 1 or more of the following: [ ]1) 2-fold or more rise in serum creatinine from baseline [ ]2) Reduction of more than 50% in estimated glomerular filtration rate from baseline [ ]3) Urine output less than 0.5 mL/kg/hr for 12 hours despite adequate volume status [ ]d) Systemic cause (eg, Goodpasture syndrome ) needing inpatient care [ ]e) Rapidly progressive renal disease needing inpatient care (eg, plasmapheresis, immunosuppression ) Anasarca needing inpatient care [ ]f) Hemoptysis [ ]g) Hemolysis, thrombosis, or infraction [ ]h) Anasarca needing inpatient care [ ]III. New-onset or uncontrolled nephrogenic diabetes insipidus [ ]IV. Urologic infection requiring inpatient care as indicated by 1 or more of the following(10)(11)(12): [ ]a) Hemodynamic instability [ ]b) Dehydration that is severe or persistent [ ]c) Failure of outpatient treatment [ ]d) Hong's gangrene [ ]e) Urinary obstruction [ ]f) Immunocompromised state (eg, chronic steroid use ) [ ]g) Known renal or urologic abnormalities(eg, indwelling catheter, structural abnormalities ) [ ]h) Recent urologic manipulation or procedure Urinary obstruction [ ]i) Abscess requiring drainage Immunocompromised state [ ]V. Acute urinary retention requiring inpatient management as indicated by ANY ONE of the following(1)(13): [ ]a) Retention cannot be alleviated via emergency or observation level care (eg, urinary catheter placement) [ ]b) Hemodynamic instability [ ]c) Acute neurologic etiology (eg, cauda equina) [ ]d) Dehydration or other complications not manageable with emergency or observation level care [ ]e) Acute kidney injury (that does not qualify as Acute renal failure ) requiring inpatient care indicated by ALL of the following(5)(6)(7)(8) (9): [ ]i) Acute kidney injury indicated by ANY ONE of the following: [ ]1) 2-fold or more rise in serum creatinine from baseline [ ]2) Reduction of more than 50% in estimated glomerular filtration rate from baseline [ ]ii) Worsening clinical status (eg, rising creatinine) despite outpatient and observation care treatment (eg, hydration) [ ]. Gross hematuria requiring inpatient management as indicated by ANY ONE of the following(1)(2): [ ]a) Evidence of renal obstruction [ ]b) Reduced urine output [ ]c) Clot retention after urinary catheterization and irrigation [ ]d) Severe Anemia [ ]e) Systemic cause needing inpatient treatment (eg, Goodpasture syndrome) [ ]VII. Priapism not responsive to emergency or observation care treatment [X ]VII. Scrotal, testicular, or epididymal disorder requiring inpatient care indicated by 1 or more of the following(1)(14)(15)(16): [ ]a) Scrotal edema or infection not manageable with emergency or observation level care [ ]b) Orchitis not manageable with emergency or observation level care [ X]c) Epididymitis not manageable with emergency or observation level of care [X ]d) Other scrotal, testicular, or epididymal disorder (eg, infection, inflammation) not manageable with emergency or observation level care [ ]IX. Complications of transplanted kidney indicated by 1 or more of the following [ ]a) Acute graft rejection requiring inpatient management (eg, intravenous immunosuppression) [ ]b) Acute kidney injury indicated by ALL of the following i) Acute kidney injury indicated by 1 or more of the following 1) 2-fold or more rise in serum creatinine from baseline 2) Reduction of more than 50% in estimated glomerular filtration rate from baseline 3) Urine output less than 0.5 mL/kg/hr for 12 hours despite adequate volume status ii) Kidney injury too severe or not responsive to outpatient and observation care treatment (eg, hydration) [ ]c) Infection requiring inpatient management (eg, Hemodynamic instability, need for intravenous antimicrobial treatment) [ ]d) Other complication of transplanted kidney requiring patient management (eg, severe diarrhea leading to malabsorption) [ ]X. Trauma to renal, genital, or urologic system requiring inpatient medical care [ ]XI. Urologic Disease condition, symptom, or finding for which emergency and observation care have failed or are not considered appropriate. The original [employer] content created by [email or web address] has been revised. The portions of the content which have been revised are identified through the use of italic text or in bold, and [email or web address] has neither reviewed nor approved the modified material. All other unmodified content is copyright [email or web address]. Please see references footnoted in the original [employer] edition 2016 PORSCHE EDWARDS Mar 11, 2017 02:33
[2017-03-11 05:45] LABS: BASO % 0 % (0-3); EOS % 0 % (0-3); HEMATOCRIT 37.2 % (39.0-53.0); HEMOGLOBIN 12.9 g/dL (13.0-17.5); LYMPH # 0.3 x10^3/uL (1.0-4.8); LYMPH % 4 % (24-48); MEAN CORPUSCULAR HEMOGLOBIN 30 pg (25-35); MEAN CORPUSCULAR HGB CONC 35 g/dL (31-37); MEAN CORPUSCULAR VOLUME 87 fL (79-100); MONO % 6 % (0-9); NEUT % 90 % (31-73); PLATELET COUNT 114 x10^3/uL (140-400); RED BLOOD COUNT 4.27 x10^6/uL (4.30-5.70); RED CELL DISTRIBUTION WIDTH 14.2 % (11.5-14.5)
[2017-03-11 06:09] LABS: CALCIUM 7.8 mg/dL (8.5-10.1); GFR 86.6; POTASSIUM 3.5 mmol/L (3.5-5.1)
[2017-03-11] MEDS: INSULIN ASPART 300 UNITS/3 ML INSULN.PEN SQ SCH ×3 (07:30→16:30)
[2017-03-11 07:49] LABS: PLT ESTIMATE DECREASED (ADEQUATE)
[2017-03-11] MEDS: IV NORMAL SALINE 1000ML BAG 1,000 ML IV SCH (09:36)
[2017-03-11] MEDS: FAMOTIDINE 20 MG TABLET. PO SCH ×2 (09:37→20:05)
[2017-03-11] MEDS: TAMSULOSIN 0.4 MG CAP.ER.24H. PO SCH ×2 (09:37→20:04)
[2017-03-11] MEDS: CLOPIDOGREL BISULFATE 75 MG TABLET PO SCH (09:37)
[2017-03-11] MEDS: LISINOPRIL 20 MG TABLET PO SCH (09:37)
[2017-03-11] MEDS: ATENOLOL 25 MG TABLET. PO SCH (09:38)
--- NOTE | 2017-03-11 11:13 | PDOC2 ---
SOREN GUADARRAMA OPTICAL DESIGNER 03/11/17 1113: Consult: Consulted by Dr. Ramírez 2016 for acute epididymitis Information obtained from medical record as patient is confused to situation, place and time. No family present at this time. This is a 82 year old male who presented with fever and weakness for 2 day duration and leukocytosis. The right testicle was swollen and painful. On ultrasound of abdomen/scrotum a h ydrocele is identified with loculations and internal complexity. The right epididymis is enlarged and hypervascular. There is some hypervascularity to the right testicle; and thickening of the right scrotal wall. PMH: CAD (stent 1993), CHF, HTN, CT, Hyperlipidemia, CVA w/ left-sided hemiparesis, dementia, Hepatitis, arthritis, CKD, DM II and BPH PSH: cardiac stent, cystoscopy SH: He is . Nonsmoker. H/o alcohol FH: Positive for CAD, HTN ALL: NKDA MEDS: Reviewed OCT, on Levaquin ROS: + generalized weakness, denies pain, N/V. PHYSICAL EXAM GENERAL: NAD HENT: PER, OP/OC pink and moist LUNGS: CTAB CV: S1 and S2 ABDOMEN: BS present, soft, NT : Right testicular swelling, mildly tender. EXT: No gross edema or cyanosis. SKIN: without rash. warm to touch COMPUTATIONAL BIOLOGIST: Arouses easily to name, confused, says he is in his bedroom and the year is 1993, follows commands LABS: Reviewed. WBC now within normal range. Lactic acid 2.2. BC NGTD US per HPI CXR Impression: 1. Linear scarring or atelectasis in the left lung base without other infiltrates. Impression: 1. Epididymoorchitis. 2. Fever 3. Leukocytosis, better 4. Dementia 5. Urinary retention Plan Levaquin check UA C&S D/w nursing and Dr. Manley Thank you FREEMAN WHALEN MD 03/11/17 1219: Consult: Impression: 1. Epididymoorchitis. 2. Fever - better 3. Leukocytosis, better 4. Dementia 5. Urinary retention Plan Cont Levaquin as he is improving check UA C&S D/w nursing last pm and cont Levofloxacin and Dr. Manley this am D/w family Thank you Attending Co-Sign Attending Co-Sign The patient was seen and interviewed as well as examined at the bedside. The chart was reviewed. The case was discussed. Agree with the plan of care. SOREN GUADARRAMA APRN Mar 11, 2017 11:13 FREEMAN WHALEN MD Mar 11, 2017 12:19
--- NOTE | 2017-03-11 12:38 | PDOC ---
IM PROGRESS NOTES- Subjective Subjective No c/o pain,dyspnea. Objective Vitals Vital Signs Date Time Temp Pulse Resp B/P (MAP) Pulse Ox O2 Delivery O2 Flow Rate FiO2 03/11/17 10:14 98.7 56 18 147/71 (96) 96 Room Air 98.7 Input & Output Intake and Output 03/11/17 07:00 Intake Total 1520 ml Balance 1520 ml Intake Oral 1520 ml # Voids 3 Physical Exam Physical Exam General appearance - alert,ill appearing, and in no distress Mental Status - alert, forgetful Head - normal Chest - clear to auscultation, no wheezes, rales or rhonchi, symmetric air entry Heart - S1 and S2 normal Abdomen - soft, nontender, nondistended, no masses or organomegaly Neurological - alert and oriented Musculoskeletal - weak,tremors + Extremities - trace pedal edema Skin - warm and dry Labs Laboratory Tests Test 03/09/17 22:10 03/10/17 06:45 03/10/17 07:17 03/10/17 11:38 White Blood Count 17.3 x10^3/uL (4.0-11.0) Red Blood Count 4.62 x10^6/uL (4.30-5.70) Hemoglobin 13.7 g/dL (13.0-17.5) Hematocrit 40.3 % (39.0-53.0) Mean Corpuscular Volume 87 fL (79-100) Mean Corpuscular Hemoglobin 30 pg (25-35) Mean Corpuscular Hemoglobin Concent 34 g/dL (31-37) Red Cell Distribution Width 14.2 % (11.5-14.5) Platelet Count 143 x10^3/uL (140-400) Neutrophils (%) (Auto) 93 % (31-73) Lymphocytes (%) (Auto) 1 % (24-48) Monocytes (%) (Auto) 5 % (0-9) Eosinophils (%) (Auto) 0 % (0-3) Basophils (%) (Auto) 0 % (0-3) Neutrophils # (Auto) 16.2 x10^3uL (1.8-7.7) Lymphocytes # (Auto) 0.2 x10^3/uL (1.0-4.8) Monocytes # (Auto) 0.9 x10^3/uL (0.0-1.1) Eosinophils # (Auto) 0.0 x10^3/uL (0.0-0.7) Basophils # (Auto) 0.0 x10^3/uL (0.0-0.2) Segmented Neutrophils % 88 % (35-66) Band Neutrophils % 6 % (0-9) Lymphocytes % 2 % (24-48) Monocytes % 4 % (0-10) Platelet Estimate Adequate (ADEQUATE) Sodium Level 138 mmol/L (136-145) Potassium Level 3.5 mmol/L (3.5-5.1) Chloride Level 102 mmol/L (98-107) Carbon Dioxide Level 25 mmol/L (21-32) Anion Gap 11 (6-14) Blood Urea Nitrogen 17 mg/dL (8-26) Creatinine 1.1 mg/dL (0.7-1.3) Estimated GFR (Cockcroft-Gault) 77.5 Glucose Level 114 mg/dL (70-99) Lactic Acid Level 1.1 mmol/L (0.4-2.0) 2.2 mmol/L (0.4-2.0) Calcium Level 8.7 mg/dL (8.5-10.1) Glucose (Fingerstick) 93 mg/dL (70-99) 134 mg/dL (70-99) Test 03/10/17 16:46 03/10/17 21:07 03/11/17 05:30 03/11/17 07:41 Glucose (Fingerstick) 129 mg/dL (70-99) 150 mg/dL (70-99) 114 mg/dL (70-99) White Blood Count 9.0 x10^3/uL (4.0-11.0) Red Blood Count 4.27 x10^6/uL (4.30-5.70) Hemoglobin 12.9 g/dL (13.0-17.5) Hematocrit 37.2 % (39.0-53.0) Mean Corpuscular Volume 87 fL (79-100) Mean Corpuscular Hemoglobin 30 pg (25-35) Mean Corpuscular Hemoglobin Concent 35 g/dL (31-37) Red Cell Distribution Width 14.2 % (11.5-14.5) Platelet Count 114 x10^3/uL (140-400) Neutrophils (%) (Auto) 90 % (31-73) Lymphocytes (%) (Auto) 4 % (24-48) Monocytes (%) (Auto) 6 % (0-9) Eosinophils (%) (Auto) 0 % (0-3) Basophils (%) (Auto) 0 % (0-3) Neutrophils # (Auto) 8.1 x10^3uL (1.8-7.7) Lymphocytes # (Auto) 0.3 x10^3/uL (1.0-4.8) Monocytes # (Auto) 0.5 x10^3/uL (0.0-1.1) Eosinophils # (Auto) 0.0 x10^3/uL (0.0-0.7) Basophils # (Auto) 0.0 x10^3/uL (0.0-0.2) Segmented Neutrophils % 95 % (35-66) Band Neutrophils % 1 % (0-9) Lymphocytes % 2 % (24-48) Monocytes % 2 % (0-10) Platelet Estimate Decreased (ADEQUATE) Sodium Level 138 mmol/L (136-145) Potassium Level 3.5 mmol/L (3.5-5.1) Chloride Level 106 mmol/L (98-107) Carbon Dioxide Level 23 mmol/L (21-32) Anion Gap 9 (6-14) Blood Urea Nitrogen 16 mg/dL (8-26) Creatinine 1.0 mg/dL (0.7-1.3) Estimated GFR (Cockcroft-Gault) 86.6 Glucose Level 107 mg/dL (70-99) Calcium Level 7.8 mg/dL (8.5-10.1) Test 03/11/17 12:17 Glucose (Fingerstick) 132 mg/dL (70-99) Laboratory Tests Test 03/10/17 16:46 03/10/17 21:07 03/11/17 05:30 03/11/17 07:41 Glucose (Fingerstick) 129 mg/dL (70-99) 150 mg/dL (70-99) 114 mg/dL (70-99) White Blood Count 9.0 x10^3/uL (4.0-11.0) Red Blood Count 4.27 x10^6/uL (4.30-5.70) Hemoglobin 12.9 g/dL (13.0-17.5) Hematocrit 37.2 % (39.0-53.0) Mean Corpuscular Volume 87 fL (79-100) Mean Corpuscular Hemoglobin 30 pg (25-35) Mean Corpuscular Hemoglobin Concent 35 g/dL (31-37) Red Cell Distribution Width 14.2 % (11.5-14.5) Platelet Count 114 x10^3/uL (140-400) Neutrophils (%) (Auto) 90 % (31-73) Lymphocytes (%) (Auto) 4 % (24-48) Monocytes (%) (Auto) 6 % (0-9) Eosinophils (%) (Auto) 0 % (0-3) Basophils (%) (Auto) 0 % (0-3) Neutrophils # (Auto) 8.1 x10^3uL (1.8-7.7) Lymphocytes # (Auto) 0.3 x10^3/uL (1.0-4.8) Monocytes # (Auto) 0.5 x10^3/uL (0.0-1.1) Eosinophils # (Auto) 0.0 x10^3/uL (0.0-0.7) Basophils # (Auto) 0.0 x10^3/uL (0.0-0.2) Segmented Neutrophils % 95 % (35-66) Band Neutrophils % 1 % (0-9) Lymphocytes % 2 % (24-48) Monocytes % 2 % (0-10) Platelet Estimate Decreased (ADEQUATE) Sodium Level 138 mmol/L (136-145) Potassium Level 3.5 mmol/L (3.5-5.1) Chloride Level 106 mmol/L (98-107) Carbon Dioxide Level 23 mmol/L (21-32) Anion Gap 9 (6-14) Blood Urea Nitrogen 16 mg/dL (8-26) Creatinine 1.0 mg/dL (0.7-1.3) Estimated GFR (Cockcroft-Gault) 86.6 Glucose Level 107 mg/dL (70-99) Calcium Level 7.8 mg/dL (8.5-10.1) Test 03/11/17 12:17 Glucose (Fingerstick) 132 mg/dL (70-99) Meds Current Medications Acetaminophen (Tylenol) 650 mg PRN Q4HRS PRN PO PAIN; Start 03/10/17 at 13:00 Acetaminophen (Tylenol) 650 mg PRN Q6HRS PRN PO MILD PAIN / TEMP; Start at 13:00; Stop 03/10/17 at 13:03; Status DC Atenolol (Tenormin) 25 mg DAILY PO Last administered on 03/11/17 09:38; Start 03/10/17 at 13:00 Clopidogrel Bisulfate (Plavix) 75 mg DAILY PO Last administered on 03/11/17 09 :37; Start 03/10/17 at 13:00 Famotidine (Pepcid) 20 mg BID PO Last administered on 03/11/17 09:37; Start at 13:00 Insulin Aspart (NovoLOG) TIDBFRMEAL SQ ; Start 03/10/17 at 16:30 Levofloxacin/ Dextrose 100 ml @ 100 mls/hr Q24H IV Last administered on 20:04; Start 03/10/17 at 21:00 Lisinopril (Prinivil) 40 mg DAILY PO Last administered on 03/11/17 09:37; Start 03/10/17 at 13:00 Potassium Chloride/Sodium Chloride 1,000 ml @ 50 mls/hr Q20H IV Last administered on 03/11/17 10:15; Start 03/11/17 at 10:15 Simvastatin (Zocor) 20 mg HS PO Last administered on 03/10/17 20:04; Start at 21:00 Tamsulosin HCl (Flomax) 0.4 mg BID PO Last administered on 03/11/17 09:37; Start 03/10/17 at 13:00 Assessment Assessment 1. epididymitis/orchitis with sepsis 2. CHF diastolic normal EF not acute 3. BPH with h/o BPH 4. CAD with h/o PCI 5. 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 CKD II 8. HTN 7. hyperlipidemia PLAN: epididymitis/orchitis Levaquin 750mg EDIV ID consult Levaquin 500mg IV until ID consult WBC 17.5 decreased to 9. LA 2.2 IVF 150cc/hr ED, decrease to 50cc/hr with h/o CHF CKD II Admit BUN 17 Cr 1.1 Na 138 K 3.5 monitor Hypokalemia- replace. HTN resume home meds DM II FSBS no SSI at this time DVT/GI prophylaxis SCD/NAHID PPI D/w ID,staff- still trying to get urine specimen.May use smaller Panchal for urinary retention. Plan Plan The patient was seen and examined by me. Chart reviewed and plan of care formulated. Discussed with, reviewed and agree with DATA ARCHITECT's notes, plan of care and orders with modifications as necessary. For more details regarding further plans, please refer to the orders. DEEPIKA KEYES MD Mar 11, 2017 12:38
[2017-03-11 17:42] LABS: BILIRUBIN,URINE NEGATIVE (NEG); GLUCOSE,URINE NEGATIVE (NEG); NITRITE,URINE NEGATIVE (NEG); PH,URINE 5.5; PROTEIN,URINE 30 mg/dL (NEG-TRACE)
[2017-03-11 17:55] LABS: BACTERIA,URINE FEW /HPF (0-FEW); SQUAMOUS EPITHELIAL CELL,UR FEW /LPF; WBC,URINE >40 /HPF (0-4)
[2017-03-11] MEDS ORDERED: POTASSIUM CHLORIDE 20 MEQ TABLET.ER. PO ONE (18:30)
--- NOTE | 2017-03-11 18:32 | EKG ---
[facility] [address] [place] [address] Test Date: 2017-03-11 Test Time: 17:24:08 Pat Name: JOSE EDUARDO POSADA Department: Room: 4 1 Gender: M [employer]ner: NYDIA : 1935 Requested By: DEEPIKA KEYES Order Number: [id number] Reading MD: Measurements Intervals [place] Rate: 60 P: 40 WA: 140 QRS: -31 QRSD: 114 T: -2 QT: 414 QTc: 418 Interpretive Statements SINUS RHYTHM ATRIAL PREMATURE COMPLEX(ES) ABNORMAL LEFT AXIS DEVIATION LEFT ANTERIOR FASCICULAR BLOCK QRS(T) CONTOUR ABNORMALITY CONSIDER INFERIOR MYOCARDIAL DAMAGE ABNORMAL ECG RI6.01 Unconfirmed report Compared to ECG 09/29/2016 12:34:31 No significant changes
[2017-03-11] MEDS: SIMVASTATIN 20 MG TABLET PO SCH (20:04)
[2017-03-12 03:03] VITALS: BP 128/80
[2017-03-12 06:17] LABS: BASO % 0 % (0-3); EOS % 1 % (0-3); HEMATOCRIT 33.7 % (39.0-53.0); HEMOGLOBIN 11.6 g/dL (13.0-17.5); LYMPH # 0.4 x10^3/uL (1.0-4.8); LYMPH % 8 % (24-48); MEAN CORPUSCULAR HEMOGLOBIN 30 pg (25-35); MEAN CORPUSCULAR HGB CONC 34 g/dL (31-37); MEAN CORPUSCULAR VOLUME 87 fL (79-100); MONO % 9 % (0-9); NEUT % 81 % (31-73); PLATELET COUNT 110 x10^3/uL (140-400); RED BLOOD COUNT 3.86 x10^6/uL (4.30-5.70); RED CELL DISTRIBUTION WIDTH 14.2 % (11.5-14.5); WHITE BLOOD COUNT 5.3 x10^3/uL (4.0-11.0)
[2017-03-12 06:43] LABS: GFR 86.6
[2017-03-12] MEDS: INSULIN ASPART 300 UNITS/3 ML INSULN.PEN SQ SCH ×3 (07:30→16:30)
[2017-03-12 07:42] VITALS: BP 132/60
[2017-03-12] MEDS: ATENOLOL 25 MG TABLET. PO SCH (09:00)
--- NOTE | 2017-03-12 09:13 | PDOC3 ---
MARYJANESRINIVASAN PANTRY WORKER 03/12/17 0913: IM DISCHARGE & PROGRESS NOTES Date of Admission Date of Admission Date of Admission: Mar 10, 2017 at 00:15 Date of Discharge Date of Discharge 03/13/17 Primary Diagnosis Primary Diagnosis Assessment 1. epididymitis/orchitis; bacteremia grm neg demetrius 08/29 btl with sepsis 2. CHF diastolic normal EF not acute 3. BPH with h/o BPH 4. CAD with h/o PCI 5. 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 CKD II 8. HTN 7. 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 Consults Consults Tej Rodriguez MD Procedures Procedures NOne Labs Labs Laboratory Tests Test 03/09/17 22:10 03/10/17 06:45 03/10/17 07:17 03/10/17 11:38 White Blood Count 17.3 x10^3/uL (4.0-11.0) Red Blood Count 4.62 x10^6/uL (4.30-5.70) Hemoglobin 13.7 g/dL (13.0-17.5) Hematocrit 40.3 % (39.0-53.0) Mean Corpuscular Volume 87 fL (79-100) Mean Corpuscular Hemoglobin 30 pg (25-35) Mean Corpuscular Hemoglobin Concent 34 g/dL (31-37) Red Cell Distribution Width 14.2 % (11.5-14.5) Platelet Count 143 x10^3/uL (140-400) Neutrophils (%) (Auto) 93 % (31-73) Lymphocytes (%) (Auto) 1 % (24-48) Monocytes (%) (Auto) 5 % (0-9) Eosinophils (%) (Auto) 0 % (0-3) Basophils (%) (Auto) 0 % (0-3) Neutrophils # (Auto) 16.2 x10^3uL (1.8-7.7) Lymphocytes # (Auto) 0.2 x10^3/uL (1.0-4.8) Monocytes # (Auto) 0.9 x10^3/uL (0.0-1.1) Eosinophils # (Auto) 0.0 x10^3/uL (0.0-0.7) Basophils # (Auto) 0.0 x10^3/uL (0.0-0.2) Segmented Neutrophils % 88 % (35-66) Band Neutrophils % 6 % (0-9) Lymphocytes % 2 % (24-48) Monocytes % 4 % (0-10) Platelet Estimate Adequate (ADEQUATE) Sodium Level 138 mmol/L (136-145) Potassium Level 3.5 mmol/L (3.5-5.1) Chloride Level 102 mmol/L (98-107) Carbon Dioxide Level 25 mmol/L (21-32) Anion Gap 11 (6-14) Blood Urea Nitrogen 17 mg/dL (8-26) Creatinine 1.1 mg/dL (0.7-1.3) Estimated GFR (Cockcroft-Gault) 77.5 Glucose Level 114 mg/dL (70-99) Lactic Acid Level 1.1 mmol/L (0.4-2.0) 2.2 mmol/L (0.4-2.0) Calcium Level 8.7 mg/dL (8.5-10.1) Glucose (Fingerstick) 93 mg/dL (70-99) 134 mg/dL (70-99) Test 03/10/17 16:46 03/10/17 21:07 03/11/17 05:30 03/11/17 07:41 Glucose (Fingerstick) 129 mg/dL (70-99) 150 mg/dL (70-99) 114 mg/dL (70-99) White Blood Count 9.0 x10^3/uL (4.0-11.0) Red Blood Count 4.27 x10^6/uL (4.30-5.70) Hemoglobin 12.9 g/dL (13.0-17.5) Hematocrit 37.2 % (39.0-53.0) Mean Corpuscular Volume 87 fL (79-100) Mean Corpuscular Hemoglobin 30 pg (25-35) Mean Corpuscular Hemoglobin Concent 35 g/dL (31-37) Red Cell Distribution Width 14.2 % (11.5-14.5) Platelet Count 114 x10^3/uL (140-400) Neutrophils (%) (Auto) 90 % (31-73) Lymphocytes (%) (Auto) 4 % (24-48) Monocytes (%) (Auto) 6 % (0-9) Eosinophils (%) (Auto) 0 % (0-3) Basophils (%) (Auto) 0 % (0-3) Neutrophils # (Auto) 8.1 x10^3uL (1.8-7.7) Lymphocytes # (Auto) 0.3 x10^3/uL (1.0-4.8) Monocytes # (Auto) 0.5 x10^3/uL (0.0-1.1) Eosinophils # (Auto) 0.0 x10^3/uL (0.0-0.7) Basophils # (Auto) 0.0 x10^3/uL (0.0-0.2) Segmented Neutrophils % 95 % (35-66) Band Neutrophils % 1 % (0-9) Lymphocytes % 2 % (24-48) Monocytes % 2 % (0-10) Platelet Estimate Decreased (ADEQUATE) Sodium Level 138 mmol/L (136-145) Potassium Level 3.5 mmol/L (3.5-5.1) Chloride Level 106 mmol/L (98-107) Carbon Dioxide Level 23 mmol/L (21-32) Anion Gap 9 (6-14) Blood Urea Nitrogen 16 mg/dL (8-26) Creatinine 1.0 mg/dL (0.7-1.3) Estimated GFR (Cockcroft-Gault) 86.6 Glucose Level 107 mg/dL (70-99) Calcium Level 7.8 mg/dL (8.5-10.1) Test 03/11/17 12:17 03/11/17 16:50 03/11/17 17:05 03/11/17 18:50 Glucose (Fingerstick) 132 mg/dL (70-99) 101 mg/dL (70-99) Urine Collection Type Unknown Urine Color Yellow Urine Clarity Cloudy Urine pH 5.5 Urine Specific [place] 1.025 Urine Protein 30 mg/dL (NEG-TRACE) Urine Glucose (UA) Negative mg/dL (NEG) Urine Ketones (Stick) Negative mg/dL (NEG) Urine Blood Large (NEG) Urine Nitrite Negative (NEG) Urine Bilirubin Negative (NEG) Urine Urobilinogen Dipstick 1.0 mg/dL (0.2 mg/dL) Urine Leukocyte Esterase Large (NEG) Urine RBC 6-10 /HPF (0-2) Urine WBC >40 /HPF (0-4) Urine Squamous Epithelial Cells Few /LPF Urine Bacteria Few /HPF (0-FEW) Urine Mucus Mod /LPF Magnesium Level 1.9 mg/dL (1.8-2.4) Test 03/11/17 20:58 03/12/17 05:55 03/12/17 07:22 Glucose (Fingerstick) 138 mg/dL (70-99) 110 mg/dL (70-99) White Blood Count 5.3 x10^3/uL (4.0-11.0) Red Blood Count 3.86 x10^6/uL (4.30-5.70) Hemoglobin 11.6 g/dL (13.0-17.5) Hematocrit 33.7 % (39.0-53.0) Mean Corpuscular Volume 87 fL (79-100) Mean Corpuscular Hemoglobin 30 pg (25-35) Mean Corpuscular Hemoglobin Concent 34 g/dL (31-37) Red Cell Distribution Width 14.2 % (11.5-14.5) Platelet Count 110 x10^3/uL (140-400) Neutrophils (%) (Auto) 81 % (31-73) Lymphocytes (%) (Auto) 8 % (24-48) Monocytes (%) (Auto) 9 % (0-9) Eosinophils (%) (Auto) 1 % (0-3) Basophils (%) (Auto) 0 % (0-3) Neutrophils # (Auto) 4.3 x10^3uL (1.8-7.7) Lymphocytes # (Auto) 0.4 x10^3/uL (1.0-4.8) Monocytes # (Auto) 0.5 x10^3/uL (0.0-1.1) Eosinophils # (Auto) 0.1 x10^3/uL (0.0-0.7) Basophils # (Auto) 0.0 x10^3/uL (0.0-0.2) Sodium Level 137 mmol/L (136-145) Potassium Level 4.0 mmol/L (3.5-5.1) Chloride Level 104 mmol/L (98-107) Carbon Dioxide Level 24 mmol/L (21-32) Anion Gap 9 (6-14) Blood Urea Nitrogen 12 mg/dL (8-26) Creatinine 1.0 mg/dL (0.7-1.3) Estimated GFR (Cockcroft-Gault) 86.6 Glucose Level 105 mg/dL (70-99) Calcium Level 8.0 mg/dL (8.5-10.1) Medications Medications Medications reviewed and reconciled for discharge. Brief hospital course Brief hospital course This 82 year old [place] male who presented with weakness, fever, and R scrotal pain was admitted. The following is a summary of his treatment: epididymitis/orchitis Levaquin 750mg EDIV ID consult 03/10 Levaquin 500mg IV WBC 17.5 03/12 5.3 LA 2.2 IVF 150cc/hr ED, decrease to 50cc/hr with h/o CHF-IVF stopped 03/12 BC grm neg demetrius 08/29 bottle-sepsis UA lg blood, WBC >40 culture pending (sent 03/11/17 evening) CKD II Admit BUN 17 03/12 12 Cr 1.1 1.0 Na 138 137 K 3.5 1.0 monitor Hypokalemia- replace. resolved HTN resume home meds amlodipine 2.5mg stopped 03/10 Continue Lisinopril 40mg -eval in office HTN not controlled -resume amlodipine and increase to 5mg daily. DM II FSBS no SSI at this time DC home with SSI, hold glipizide for now. BS 90-140 DVT/GI prophylaxis SCD/NAHID PPI anemia Admit Hgb 13.7 03/12 11.6 Plt 143 110 Bradycardia HR decreased to 40 - 50s through night. Atenolol 25mg stopped. Family considering SNU instead of home with HHN PT OT. DC orders for home and SNU prepared. DC when okay with ID. For more details regarding the past history, family history, social history, surgical history and other details, please refer to History and Physical. Subjective No c/o pain,dyspnea. Objective no distress Vitals Vital Signs Date Time Temp Pulse Resp B/P (MAP) Pulse Ox O2 Delivery O2 Flow Rate FiO2 03/12/17 07:42 98.5 47 132/60 (84) 98 Room Air 98.5 03/11/17 23:24 16 Physical Exam General appearance - alert,ill appearing, and in no distress Mental Status - alert, forgetful Head - normal Chest - clear to auscultation, no wheezes, rales or rhonchi, symmetric air entry Heart - S1 and S2 normal Abdomen - soft, nontender, nondistended, no masses or organomegaly : decrease in scrotal swelling, tenderness, and erythema Neurological - no acute neurological distress noted Musculoskeletal - weak,tremors + Extremities - trace pedal edema Skin - warm and dry Medications Medications reviewed. Allergy Allergies Coded Allergies Type Severity Reaction Last Updated Verified No Known Drug Allergies 05/01/14 No Follow up in 3-5 days if home with HHN PT OT Admit to Dr. Keyes if SNU admission Comments Discharge Management - 35 minutes. For other details please refer to discharge instructions DEEPIKA KEYES MD 03/13/17 0948: IM DISCHARGE & PROGRESS NOTES Brief hospital course Comments Patient is weaker since his admission.ok to consider SNF when ready. The patient was seen and examined by me. Chart reviewed and plan of care formulated. Discussed with, reviewed and agree with EMERGENCY CARE TECH's notes, plan of care and orders with modifications as necessary. For more details regarding further plans, please refer to the orders. SRINIVASAN WESLEY APRN Mar 12, 2017 09:13 DEEPIKA KEYES MD Mar 13, 2017 09:48
--- NOTE | 2017-03-12 09:22 | PDOC ---
NEGROMirtaSRINIVASAN GUY OPERATION RESEARCH ANALYST 03/12/17 0922: IM PROGRESS NOTES- Subjective Subjective No c/o pain,dyspnea. Objective Objective alert no distress Vitals Vital Signs Date Time Temp Pulse Resp B/P (MAP) Pulse Ox O2 Delivery O2 Flow Rate FiO2 03/12/17 07:42 98.5 47 132/60 (84) 98 Room Air 98.5 03/11/17 23:24 16 Input & Output Intake and Output 03/12/17 07:00 Intake Total 1130 ml Output Total 400 ml Balance 730 ml Intake Oral 1130 ml Output Urine Total 400 ml # Voids 4 # Bowel Movements 1 Physical Exam Physical Exam General appearance - alert,ill appearing, and in no distress Mental Status - alert, forgetful Head - normal Chest - clear to auscultation, no wheezes, rales or rhonchi, symmetric air entry Heart - S1 and S2 normal Abdomen - soft, nontender, nondistended, no masses or organomegaly : R scrotum less erythema/warmth, still swollen Neurological - no acute focal neurological deficit noted, chronic L sided weakness old CVA Musculoskeletal - weak,tremors + Extremities - trace pedal edema Skin - warm and dry Labs Laboratory Tests Test 03/10/17 11:38 03/10/17 16:46 03/10/17 21:07 03/11/17 05:30 Glucose (Fingerstick) 134 mg/dL (70-99) 129 mg/dL (70-99) 150 mg/dL (70-99) White Blood Count 9.0 x10^3/uL (4.0-11.0) Red Blood Count 4.27 x10^6/uL (4.30-5.70) Hemoglobin 12.9 g/dL (13.0-17.5) Hematocrit 37.2 % (39.0-53.0) Mean Corpuscular Volume 87 fL (79-100) Mean Corpuscular Hemoglobin 30 pg (25-35) Mean Corpuscular Hemoglobin Concent 35 g/dL (31-37) Red Cell Distribution Width 14.2 % (11.5-14.5) Platelet Count 114 x10^3/uL (140-400) Neutrophils (%) (Auto) 90 % (31-73) Lymphocytes (%) (Auto) 4 % (24-48) Monocytes (%) (Auto) 6 % (0-9) Eosinophils (%) (Auto) 0 % (0-3) Basophils (%) (Auto) 0 % (0-3) Neutrophils # (Auto) 8.1 x10^3uL (1.8-7.7) Lymphocytes # (Auto) 0.3 x10^3/uL (1.0-4.8) Monocytes # (Auto) 0.5 x10^3/uL (0.0-1.1) Eosinophils # (Auto) 0.0 x10^3/uL (0.0-0.7) Basophils # (Auto) 0.0 x10^3/uL (0.0-0.2) Segmented Neutrophils % 95 % (35-66) Band Neutrophils % 1 % (0-9) Lymphocytes % 2 % (24-48) Monocytes % 2 % (0-10) Platelet Estimate Decreased (ADEQUATE) Sodium Level 138 mmol/L (136-145) Potassium Level 3.5 mmol/L (3.5-5.1) Chloride Level 106 mmol/L (98-107) Carbon Dioxide Level 23 mmol/L (21-32) Anion Gap 9 (6-14) Blood Urea Nitrogen 16 mg/dL (8-26) Creatinine 1.0 mg/dL (0.7-1.3) Estimated GFR (Cockcroft-Gault) 86.6 Glucose Level 107 mg/dL (70-99) Calcium Level 7.8 mg/dL (8.5-10.1) Test 03/11/17 07:41 03/11/17 12:17 03/11/17 16:50 03/11/17 17:05 Glucose (Fingerstick) 114 mg/dL (70-99) 132 mg/dL (70-99) 101 mg/dL (70-99) Urine Collection Type Unknown Urine Color Yellow Urine Clarity Cloudy Urine pH 5.5 Urine Specific [place] 1.025 Urine Protein 30 mg/dL (NEG-TRACE) Urine Glucose (UA) Negative mg/dL (NEG) Urine Ketones (Stick) Negative mg/dL (NEG) Urine Blood Large (NEG) Urine Nitrite Negative (NEG) Urine Bilirubin Negative (NEG) Urine Urobilinogen Dipstick 1.0 mg/dL (0.2 mg/dL) Urine Leukocyte Esterase Large (NEG) Urine RBC 6-10 /HPF (0-2) Urine WBC >40 /HPF (0-4) Urine Squamous Epithelial Cells Few /LPF Urine Bacteria Few /HPF (0-FEW) Urine Mucus Mod /LPF Test 03/11/17 18:50 03/11/17 20:58 03/12/17 05:55 03/12/17 07:22 Magnesium Level 1.9 mg/dL (1.8-2.4) Glucose (Fingerstick) 138 mg/dL (70-99) 110 mg/dL (70-99) White Blood Count 5.3 x10^3/uL (4.0-11.0) Red Blood Count 3.86 x10^6/uL (4.30-5.70) Hemoglobin 11.6 g/dL (13.0-17.5) Hematocrit 33.7 % (39.0-53.0) Mean Corpuscular Volume 87 fL (79-100) Mean Corpuscular Hemoglobin 30 pg (25-35) Mean Corpuscular Hemoglobin Concent 34 g/dL (31-37) Red Cell Distribution Width 14.2 % (11.5-14.5) Platelet Count 110 x10^3/uL (140-400) Neutrophils (%) (Auto) 81 % (31-73) Lymphocytes (%) (Auto) 8 % (24-48) Monocytes (%) (Auto) 9 % (0-9) Eosinophils (%) (Auto) 1 % (0-3) Basophils (%) (Auto) 0 % (0-3) Neutrophils # (Auto) 4.3 x10^3uL (1.8-7.7) Lymphocytes # (Auto) 0.4 x10^3/uL (1.0-4.8) Monocytes # (Auto) 0.5 x10^3/uL (0.0-1.1) Eosinophils # (Auto) 0.1 x10^3/uL (0.0-0.7) Basophils # (Auto) 0.0 x10^3/uL (0.0-0.2) Sodium Level 137 mmol/L (136-145) Potassium Level 4.0 mmol/L (3.5-5.1) Chloride Level 104 mmol/L (98-107) Carbon Dioxide Level 24 mmol/L (21-32) Anion Gap 9 (6-14) Blood Urea Nitrogen 12 mg/dL (8-26) Creatinine 1.0 mg/dL (0.7-1.3) Estimated GFR (Cockcroft-Gault) 86.6 Glucose Level 105 mg/dL (70-99) Calcium Level 8.0 mg/dL (8.5-10.1) Laboratory Tests Test 03/11/17 12:17 03/11/17 16:50 03/11/17 17:05 03/11/17 18:50 Glucose (Fingerstick) 132 mg/dL (70-99) 101 mg/dL (70-99) Urine Collection Type Unknown Urine Color Yellow Urine Clarity Cloudy Urine pH 5.5 Urine Specific [place] 1.025 Urine Protein 30 mg/dL (NEG-TRACE) Urine Glucose (UA) Negative mg/dL (NEG) Urine Ketones (Stick) Negative mg/dL (NEG) Urine Blood Large (NEG) Urine Nitrite Negative (NEG) Urine Bilirubin Negative (NEG) Urine Urobilinogen Dipstick 1.0 mg/dL (0.2 mg/dL) Urine Leukocyte Esterase Large (NEG) Urine RBC 6-10 /HPF (0-2) Urine WBC >40 /HPF (0-4) Urine Squamous Epithelial Cells Few /LPF Urine Bacteria Few /HPF (0-FEW) Urine Mucus Mod /LPF Magnesium Level 1.9 mg/dL (1.8-2.4) Test 03/11/17 20:58 03/12/17 05:55 03/12/17 07:22 Glucose (Fingerstick) 138 mg/dL (70-99) 110 mg/dL (70-99) White Blood Count 5.3 x10^3/uL (4.0-11.0) Red Blood Count 3.86 x10^6/uL (4.30-5.70) Hemoglobin 11.6 g/dL (13.0-17.5) Hematocrit 33.7 % (39.0-53.0) Mean Corpuscular Volume 87 fL (79-100) Mean Corpuscular Hemoglobin 30 pg (25-35) Mean Corpuscular Hemoglobin Concent 34 g/dL (31-37) Red Cell Distribution Width 14.2 % (11.5-14.5) Platelet Count 110 x10^3/uL (140-400) Neutrophils (%) (Auto) 81 % (31-73) Lymphocytes (%) (Auto) 8 % (24-48) Monocytes (%) (Auto) 9 % (0-9) Eosinophils (%) (Auto) 1 % (0-3) Basophils (%) (Auto) 0 % (0-3) Neutrophils # (Auto) 4.3 x10^3uL (1.8-7.7) Lymphocytes # (Auto) 0.4 x10^3/uL (1.0-4.8) Monocytes # (Auto) 0.5 x10^3/uL (0.0-1.1) Eosinophils # (Auto) 0.1 x10^3/uL (0.0-0.7) Basophils # (Auto) 0.0 x10^3/uL (0.0-0.2) Sodium Level 137 mmol/L (136-145) Potassium Level 4.0 mmol/L (3.5-5.1) Chloride Level 104 mmol/L (98-107) Carbon Dioxide Level 24 mmol/L (21-32) Anion Gap 9 (6-14) Blood Urea Nitrogen 12 mg/dL (8-26) Creatinine 1.0 mg/dL (0.7-1.3) Estimated GFR (Cockcroft-Gault) 86.6 Glucose Level 105 mg/dL (70-99) Calcium Level 8.0 mg/dL (8.5-10.1) Meds Current Medications Potassium Chloride/Sodium Chloride 1,000 ml @ 50 mls/hr Q20H IV Last administered on 03/12/17 04:41; Start 03/11/17 at 10:15 Potassium Chloride (Klor-Con) 20 meq 1X ONCE PO Last administered on 20:04; Start 03/11/17 at 18:30; Stop 03/11/17 at 18:31; Status DC Assessment Assessment 1. epididymitis/orchitis; bacteremia grm neg demetrius 08/29 btl with sepsis 2. CHF diastolic normal EF not acute 3. BPH with h/o BPH 4. CAD with h/o PCI 5. 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 CKD II 8. HTN 7. hyperlipidemia PLAN: epididymitis/orchitis Levaquin 750mg EDIV ID consult 03/10 Levaquin 500mg IV WBC 17.5 03/12 5.3 LA 2.2 IVF 150cc/hr ED, decrease to 50cc/hr with h/o CHF-IVF stopped 03/12 BC grm neg demetrius 1/3 bottle UA lg blood, WBC >40 culture pending CKD II Admit BUN 17 03/12 12 Cr 1.1 1.0 Na 138 137 K 3.5 1.0 monitor Hypokalemia- replace. resolved HTN resume home meds amlodipine 2.5mg stopped 03/10 DM II FSBS no SSI at this time DVT/GI prophylaxis SCD/NAHID PPI anemia Admit Hgb 13.7 03/12 11.6 Plt 143 110 Bradycardia HR decreased to high 40s low 50s through night. Atenolol 25mg If ID agrees, will plan DC home with HHN PT OT. For further plan of care, please refer to the orders. Plan Plan For more details regarding further plans, please refer to the orders. DEEPIKA KEYES MD 03/12/17 0935: IM PROGRESS NOTES- Assessment Assessment Doing better. Rt testicle size unchanged,tenderness better..u/a noted.No redness. Discharge when ok with ID. The patient was seen and examined by me. Chart reviewed and plan of care formulated. Discussed with, reviewed and agree with CREDIT FRONT OFFICE DEVELOPER's notes, plan of care and orders with modifications as necessary. Discharge Management - 35 minutes. SRINIVAASN WESLEY APRN Mar 12, 2017 09:22 DEEPIKA KEYES MD Mar 12, 2017 09:35
[2017-03-12] MEDS: LISINOPRIL 20 MG TABLET PO SCH (09:23)
[2017-03-12] MEDS: TAMSULOSIN 0.4 MG CAP.ER.24H. PO SCH ×2 (09:24→21:01)
[2017-03-12] MEDS: CLOPIDOGREL BISULFATE 75 MG TABLET PO SCH (09:24)
[2017-03-12] MEDS: FAMOTIDINE 20 MG TABLET. PO SCH ×2 (09:25→21:01)
--- NOTE | 2017-03-12 09:25 | DISCH ---
DISCHARGE INSTRUCTIONS Condition on Discharge Condition on Discharge: Stable Activity After Discharge Activity Instructions for Disc: Activity as tolerated Diet after Discharge Diet after Discharge: Cardiac Checks after Discharge DC Comment: check BS daily, bring log to appt. Community/Resources/Services Services at Discharge: Home Health Care Services (PT OT eval and treat) Contacting the DRJil after DC Call your doctor for: Concerns you may have Follow-Up Follow up with: Dr. Manley or Michael in 3-4 days Treatment/Equipment after DC Adaptive Equipment Issued: Karenchair SRINIVASAN WESLEY APRN Mar 12, 2017 09:25
[2017-03-12] MEDS ORDERED: LEVO500T59 PO (09:35)
[2017-03-12] MEDS ORDERED: INSU100I17 SQ (09:35)
--- NOTE | 2017-03-12 09:40 | DISCH ---
DISCHARGE WITH HOME HEALTH DISCHARGE INFORMATION: Discharge Date: Mar 12, 2017 Final Diagnosis: Problems Medical Problems: (1) Orchitis Status: Acute (2) Sepsis Status: Acute Condition on Discharge: Stable HOME HEALTH: Face to Face: I certify this patient is under my care and that my nurse practitioner working with me, had a face to face encounter that meets the physician face to face encounter requirements with this patient on 03/12/17. Medical Condition(s): Other (epididymitis/orchitis ) Retirement For: Assess/Skilled Observatio Physical Therapy For: Evalulation/Treatment Occupational Therapy For: Evaluation/Treatment FOLLOW-UP: Follow up with: Dr. Manley or Michael in 3-4 days TREATMENT/EQUIPMENT ORDERS Adaptive Equipment Issued: Claude CERTIFICATION STATEMENT: Certification Statement: Certification Statement: Based on the above finding, I certify that this patient is confined to the home and needs intermittent alf care, physical therapy and/or speech therapy, or continues to need occupational therapy.~ This patient is under my care, and I have initiated the establishment of the plan of care.~ This patient will be followed by myself or a community physician who will periodically review the plan of care. SRINIVASAN WESLEY APRN Mar 12, 2017 09:40
--- NOTE | 2017-03-12 10:28 | PDOC ---
Infectious Disease Note Subjective Subjective Feeling "elegant." Hurting in his "pocketbook." Incontinent urine No fever last 24 hours ROS ROS GEN: Denies chills, sweats CV: Denies chest pain RESP: Denies shortness of air, cough GI: Denies n/v/d Vital Sign Vital Signs Vital Signs Date Time Temp Pulse Resp B/P (MAP) Pulse Ox O2 Delivery O2 Flow Rate FiO2 03/12/17 09:23 47 132/60 03/12/17 08:00 Room Air 03/12/17 07:42 98.5 98 98.5 03/11/17 23:24 16 Physical Exam PHYSICAL EXAM GENERAL: Lying down, joking, NAD HENT: OP/OC pink and moist LUNGS: CTAB CV: S1 and S2 ABDOMEN: BS present, soft, NT : Right testicular swelling, mildly tender. EXT: No gross edema or cyanosis. SKIN: without rash. warm to touch DIAPHRAGM BUILDER: Alert, smiling, confused Labs Lab Laboratory Tests Test 03/11/17 12:17 03/11/17 16:50 03/11/17 17:05 03/11/17 18:50 Glucose (Fingerstick) 132 mg/dL (70-99) 101 mg/dL (70-99) Urine Collection Type Unknown Urine Color Yellow Urine Clarity Cloudy Urine pH 5.5 Urine Specific [place] 1.025 Urine Protein 30 mg/dL (NEG-TRACE) Urine Glucose (UA) Negative mg/dL (NEG) Urine Ketones (Stick) Negative mg/dL (NEG) Urine Blood Large (NEG) Urine Nitrite Negative (NEG) Urine Bilirubin Negative (NEG) Urine Urobilinogen Dipstick 1.0 mg/dL (0.2 mg/dL) Urine Leukocyte Esterase Large (NEG) Urine RBC 6-10 /HPF (0-2) Urine WBC >40 /HPF (0-4) Urine Squamous Epithelial Cells Few /LPF Urine Bacteria Few /HPF (0-FEW) Urine Mucus Mod /LPF Magnesium Level 1.9 mg/dL (1.8-2.4) Test 03/11/17 20:58 03/12/17 05:55 03/12/17 07:22 Glucose (Fingerstick) 138 mg/dL (70-99) 110 mg/dL (70-99) White Blood Count 5.3 x10^3/uL (4.0-11.0) Red Blood Count 3.86 x10^6/uL (4.30-5.70) Hemoglobin 11.6 g/dL (13.0-17.5) Hematocrit 33.7 % (39.0-53.0) Mean Corpuscular Volume 87 fL (79-100) Mean Corpuscular Hemoglobin 30 pg (25-35) Mean Corpuscular Hemoglobin Concent 34 g/dL (31-37) Red Cell Distribution Width 14.2 % (11.5-14.5) Platelet Count 110 x10^3/uL (140-400) Neutrophils (%) (Auto) 81 % (31-73) Lymphocytes (%) (Auto) 8 % (24-48) Monocytes (%) (Auto) 9 % (0-9) Eosinophils (%) (Auto) 1 % (0-3) Basophils (%) (Auto) 0 % (0-3) Neutrophils # (Auto) 4.3 x10^3uL (1.8-7.7) Lymphocytes # (Auto) 0.4 x10^3/uL (1.0-4.8) Monocytes # (Auto) 0.5 x10^3/uL (0.0-1.1) Eosinophils # (Auto) 0.1 x10^3/uL (0.0-0.7) Basophils # (Auto) 0.0 x10^3/uL (0.0-0.2) Sodium Level 137 mmol/L (136-145) Potassium Level 4.0 mmol/L (3.5-5.1) Chloride Level 104 mmol/L (98-107) Carbon Dioxide Level 24 mmol/L (21-32) Anion Gap 9 (6-14) Blood Urea Nitrogen 12 mg/dL (8-26) Creatinine 1.0 mg/dL (0.7-1.3) Estimated GFR (Cockcroft-Gault) 86.6 Glucose Level 105 mg/dL (70-99) Calcium Level 8.0 mg/dL (8.5-10.1) Micro BLOOD CULTURE Final GRAM NEGATIVE RODS, IN 1 OF 3 BOTTLES, TWO SETS DRAWN. CALLED TO EMIGDIO KIM RN ON 6S AT 8:05 ON 03/12/17 [facility] Objective Assessment GNR sepsis, POA. 03/09 UTI, 03/11 Epididymoorchitis. Fever, better Leukocytosis, better Dementia Urinary retention Plan Plan of Care Clinically improving Continue Alfonso, D/w Dr. Whalen Cancel discharge Await GNR ID/sensitivities and UC results Patient incontinent of urine, had retention on admission, staff unable to place Panchal due to enlarged prostate, repeat bladder scan D/w RN D/w son Attending Co-Sign Attending Co-Sign The patient was seen and interviewed as well as examined at the bedside. The chart was reviewed. The case was discussed. Agree with the plan of care. SOREN GUADARRAMA APRN Mar 12, 2017 10:28 FREEMAN WHALEN MD Mar 12, 2017 16:39
[2017-03-12 10:39] VITALS: BP 120/55
[2017-03-12 15:41] VITALS: BP 101/68
[2017-03-12 19:10] VITALS: BP 177/75
[2017-03-12] MEDS: SIMVASTATIN 20 MG TABLET PO SCH (21:01)
[2017-03-12 23:10] VITALS: BP 94/82
[2017-03-13 03:10] VITALS: BP 176/77
[2017-03-13 07:30] VITALS: BP 117/75
[2017-03-13] MEDS: INSULIN ASPART 300 UNITS/3 ML INSULN.PEN SQ SCH ×3 (07:30→16:30)
--- NOTE | 2017-03-13 07:57 | PDOC ---
Provider Note Provider Note See combined DC summary progress note for 03/13/17. SRINIVASAN WESLEY APRN Mar 13, 2017 07:57
--- NOTE | 2017-03-13 07:58 | DISCH ---
DISCHARGE DISCHARGE DATE: Mar 13, 2017 FINAL DIAGNOSIS Problems Medical Problems: (1) Orchitis Status: Acute (2) Sepsis Status: Acute CONDITION ON DISCHARGE: Stable SNF STAY <30 DAYS: Yes (PT OT eval and treat) POST DISCHARGE ORDERS ACTIVITY ORDERS: Activity as tolerated WEIGHT BEARING STATUS: As tolerated DIET AFTER DISCHARGE: Cardiac CHECKS AFTER DISCHARGE CHECKS AFTER DISCHARGE: Check blood sugar, ac/hs COMMENTS: VS daily FOLLOW-UP PHYSICIAN FOLLOW-UP: Admity to Dr. Manley LAB ORDERS FOR FOLLOW-UP: CBC with diff, CMP, Mg in AM after admit TREATMENT/EQUIPMENT ORDERS ADAPTIVE EQUIPMENT NEEDED: Walker, Wheelchair SRINIVASAN WESLEY APRN Mar 13, 2017 07:58
[2017-03-13] MEDS ORDERED: AMLO5TAB2 PO (08:01)
[2017-03-13] MEDS: ATENOLOL 25 MG TABLET. PO SCH (09:00)
[2017-03-13] MEDS: amLODIPine BESYLATE 5 MG TABLET PO SCH (09:52)
[2017-03-13] MEDS: LISINOPRIL 20 MG TABLET PO SCH (09:53)
[2017-03-13] MEDS: FAMOTIDINE 20 MG TABLET. PO SCH ×2 (09:57→21:49)
[2017-03-13] MEDS: CLOPIDOGREL BISULFATE 75 MG TABLET PO SCH (09:57)
[2017-03-13] MEDS: TAMSULOSIN 0.4 MG CAP.ER.24H. PO SCH ×2 (09:57→21:49)
[2017-03-13 11:20] VITALS: BP 98/71
--- NOTE | 2017-03-13 12:22 | PDOC ---
Infectious Disease Note Subjective Subjective feeling good ROS ROS GEN: Denies fevers, chills, sweats HEENT: Denies blurred vision, sore throat CV: Denies chest pain RESP: Denies shortness of air, cough GI: Denies n/v/d NEURO: Denies confusion, dizziness MSK: Denies weakness, joint pain/swelling Vital Sign Vital Signs Vital Signs Date Time Temp Pulse Resp B/P (MAP) Pulse Ox O2 Delivery O2 Flow Rate FiO2 03/13/17 11:20 98.4 65 16 98/71 (80) 97 Room Air 98.4 Physical Exam PHYSICAL EXAM GENERAL: NAD, Alert HEENT: PERRL, OC/OP NECK: Supple, no JVD, no LN LUNGS: Clear HEART: S1S2, no gallop, no murmur ABD: Soft, NT, no organomegaly, no rebound EXT: No edema, no cyanosis DIGITAL SALES MANAGER: Alert, oriented x 3, no focal neurologic deficit SKIN: No rash IV: ok Labs Lab Laboratory Tests Test 03/12/17 17:01 03/12/17 21:01 03/13/17 08:02 03/13/17 12:15 Glucose (Fingerstick) 90 mg/dL (70-99) 121 mg/dL (70-99) 114 mg/dL (70-99) 211 mg/dL (70-99) Objective Assessment GNR sepsis, POA. 03/09,, ID still pending UTI, 03/11 Epididymoorchitis. Fever, better Leukocytosis, better Dementia Urinary retention Plan Plan of Care Clinically improving Continue Levaquin, Cancel discharge Await GNR ID/sensitivities and UC results Patient incontinent of urine, had retention on admission, staff unable to place Panchal due to enlarged prostate, repeat bladder scan D/w DANYELLE BLAKE MD Mar 13, 2017 12:22
[2017-03-13 14:36] LABS: CALCIUM 8.4 mg/dL (8.5-10.1); GFR 86.6; POTASSIUM 3.6 mmol/L (3.5-5.1)
[2017-03-13 14:43] LABS: ALBUMIN 2.8 g/dL (3.4-5.0); ALBUMIN/GLOBULIN RATIO 0.8 (1.0-1.7); TOTAL BILIRUBIN 0.4 mg/dL (0.2-1.0); TOTAL PROTEIN 6.4 g/dL (6.4-8.2)
[2017-03-13 15:00] VITALS: BP 154/73
[2017-03-13 19:20] VITALS: BP 142/77
[2017-03-13] MEDS ORDERED: ATORVASTATIN CALCIUM 10 MG TABLET. PO SCH (21:00)
[2017-03-13 23:20] VITALS: BP 124/60
[2017-03-14 03:20] VITALS: BP 120/51
[2017-03-14 05:12] LABS: CREATININE 0.9 mg/dL (0.7-1.3); GFR 97.8; POTASSIUM 3.9 mmol/L (3.5-5.1)
[2017-03-14] MEDS: INSULIN ASPART 300 UNITS/3 ML INSULN.PEN SQ SCH ×2 (07:30→11:30)
[2017-03-14 07:55] VITALS: BP 118/67
[2017-03-14 08:02] VITALS: BP 118/67
[2017-03-14] MEDS: LISINOPRIL 20 MG TABLET PO SCH (08:38)
[2017-03-14] MEDS: TAMSULOSIN 0.4 MG CAP.ER.24H. PO SCH (08:38)
[2017-03-14] MEDS: ATENOLOL 25 MG TABLET. PO SCH (08:39)
[2017-03-14] MEDS: FAMOTIDINE 20 MG TABLET. PO SCH (08:39)
[2017-03-14] MEDS: amLODIPine BESYLATE 5 MG TABLET PO SCH (08:40)
[2017-03-14] MEDS: CLOPIDOGREL BISULFATE 75 MG TABLET PO SCH (08:40)
[2017-03-14 09:15] LABS: BASO % 0 % (0-3); EOS % 1 % (0-3); HEMATOCRIT 38.9 % (39.0-53.0); HEMOGLOBIN 13.5 g/dL (13.0-17.5); LYMPH # 0.9 x10^3/uL (1.0-4.8); LYMPH % 11 % (24-48); MEAN CORPUSCULAR HEMOGLOBIN 30 pg (25-35); MEAN CORPUSCULAR HGB CONC 35 g/dL (31-37); MEAN CORPUSCULAR VOLUME 86 fL (79-100); MONO % 9 % (0-9); NEUT % 79 % (31-73); PLATELET COUNT 141 x10^3/uL (140-400); RED BLOOD COUNT 4.53 x10^6/uL (4.30-5.70); RED CELL DISTRIBUTION WIDTH 13.7 % (11.5-14.5); WHITE BLOOD COUNT 7.7 x10^3/uL (4.0-11.0)
[2017-03-14 11:30] VITALS: BP 100/69
--- NOTE | 2017-03-14 12:01 | PDOC ---
Infectious Disease Note Subjective Subjective feeling good ROS ROS GEN: Denies fevers, chills, sweats HEENT: Denies blurred vision, sore throat CV: Denies chest pain RESP: Denies shortness of air, cough GI: Denies n/v/d NEURO: Denies confusion, dizziness MSK: Denies weakness, joint pain/swelling Vital Sign Vital Signs Vital Signs Date Time Temp Pulse Resp B/P (MAP) Pulse Ox O2 Delivery O2 Flow Rate FiO2 03/14/17 11:30 98.6 69 16 100/69 (79) 100 Room Air 98.6 Physical Exam PHYSICAL EXAM GENERAL: NAD, Alert HEENT: PERRL, OC/OP NECK: Supple, no JVD, no LN LUNGS: Clear HEART: S1S2, no gallop, no murmur ABD: Soft, NT, no organomegaly, no rebound EXT: No edema, no cyanosis COAL HAULER OPERATOR: Alert, oriented x 3, no focal neurologic deficit SKIN: No rash IV: ok Labs Lab Laboratory Tests Test 03/13/17 12:15 03/13/17 14:00 03/13/17 17:09 03/13/17 21:07 Glucose (Fingerstick) 211 mg/dL (70-99) 118 mg/dL (70-99) 139 mg/dL (70-99) Sodium Level 137 mmol/L (136-145) Potassium Level 3.6 mmol/L (3.5-5.1) Chloride Level 102 mmol/L (98-107) Carbon Dioxide Level 29 mmol/L (21-32) Anion Gap 6 (6-14) Blood Urea Nitrogen 15 mg/dL (8-26) Creatinine 1.0 mg/dL (0.7-1.3) Estimated GFR (Cockcroft-Gault) 86.6 BUN/Creatinine Ratio 15 (6-20) Glucose Level 163 mg/dL (70-99) Calcium Level 8.4 mg/dL (8.5-10.1) Total Bilirubin 0.4 mg/dL (0.2-1.0) Aspartate Amino Transf (AST/SGOT) 37 U/L (15-37) Alanine Aminotransferase (ALT/SGPT) 41 U/L (16-63) Alkaline Phosphatase 75 U/L (46-116) Total Protein 6.4 g/dL (6.4-8.2) Albumin 2.8 g/dL (3.4-5.0) Albumin/Globulin Ratio 0.8 (1.0-1.7) Test 03/14/17 04:00 03/14/17 08:04 03/14/17 08:55 Sodium Level 138 mmol/L (136-145) Potassium Level 3.9 mmol/L (3.5-5.1) Chloride Level 105 mmol/L (98-107) Carbon Dioxide Level 26 mmol/L (21-32) Anion Gap 7 (6-14) Blood Urea Nitrogen 14 mg/dL (8-26) Creatinine 0.9 mg/dL (0.7-1.3) Estimated GFR (Cockcroft-Gault) 97.8 Glucose Level 124 mg/dL (70-99) Calcium Level 8.0 mg/dL (8.5-10.1) Glucose (Fingerstick) 115 mg/dL (70-99) White Blood Count 7.7 x10^3/uL (4.0-11.0) Red Blood Count 4.53 x10^6/uL (4.30-5.70) Hemoglobin 13.5 g/dL (13.0-17.5) Hematocrit 38.9 % (39.0-53.0) Mean Corpuscular Volume 86 fL (79-100) Mean Corpuscular Hemoglobin 30 pg (25-35) Mean Corpuscular Hemoglobin Concent 35 g/dL (31-37) Red Cell Distribution Width 13.7 % (11.5-14.5) Platelet Count 141 x10^3/uL (140-400) Neutrophils (%) (Auto) 79 % (31-73) Lymphocytes (%) (Auto) 11 % (24-48) Monocytes (%) (Auto) 9 % (0-9) Eosinophils (%) (Auto) 1 % (0-3) Basophils (%) (Auto) 0 % (0-3) Neutrophils # (Auto) 6.1 x10^3uL (1.8-7.7) Lymphocytes # (Auto) 0.9 x10^3/uL (1.0-4.8) Monocytes # (Auto) 0.7 x10^3/uL (0.0-1.1) Eosinophils # (Auto) 0.1 x10^3/uL (0.0-0.7) Basophils # (Auto) 0.0 x10^3/uL (0.0-0.2) Objective Assessment GNR sepsis, POA. 03/09,, e coli UTI, 03/11 Epididymoorchitis. Fever, better Leukocytosis, better Dementia Urinary retention Plan Plan of Care Clinically improving Continue Levaquin, po for 7 more days ok to d/c DANYELLE TITUS MD Mar 14, 2017 12:00
[2017-03-14 14:31] VITALS: BP 116/60
== END 2017-03-14 16:00 | DRG 872 ==
LOC: ER 21:55 → 6 SOUTH 03-10 00:15
PROVIDERS: ADMIT Internal Medicine; ATTEND Internal Medicine
DX: A41.50 Gram-negative sepsis, unspecified (principal); N39.0 Urinary tract infection, site not specified; I13.0 Hypertensive heart and chronic kidney disease with heart failure and stage 1 through stage 4 chronic kidney disease, or unspecified chronic kidney disease; I50.32 Chronic diastolic (congestive) heart failure; I69.354 Hemiplegia and hemiparesis following cerebral infarction affecting left non-dominant side; N45.3 Epididymo-orchitis; E11.22 Type 2 diabetes mellitus with diabetic chronic kidney disease; E78.5 Hyperlipidemia, unspecified; E87.6 Hypokalemia; F03.90 Unspecified dementia, unspecified severity, without behavioral disturbance, psychotic disturbance, mood disturbance, and anxiety; I25.10 Atherosclerotic heart disease of native coronary artery without angina pectoris; N18.2 Chronic kidney disease, stage 2 (mild); R32 Unspecified urinary incontinence; D64.9 Anemia, unspecified; E86.0 Dehydration; M19.90 Unspecified osteoarthritis, unspecified site; N40.0 Benign prostatic hyperplasia without lower urinary tract symptoms; R56.9 Unspecified convulsions; Z82.49 Family history of ischemic heart disease and other diseases of the circulatory system; I25.2 Old myocardial infarction; Z95.5 Presence of coronary angioplasty implant and graft
CPT/HCPCS: 36415; 71010; 76870; 80048; 80053; 81001; 82962; 83605; 83735; 85007; 85027; 87040; 87086; 87205; 93005; 96365; J1815; J1956; J2270; J7030; 97530; 99285-25

== ENCOUNTER 2017-04-20 12:33 | Emergency (ER) | payer MEDICARE ==
[~2017-04-20 12:33] MED LIST changes: +AMLO2.5T PO; +AMLO5TAB2 PO; +FINA5TAB4 PO; +LEVO500T59 PO
--- NOTE | 2017-04-20 13:26 | PHYS DOC ---
Past Medical History Past Medical History: CVA, Diabetes-Type II, Hypertension, NE, Seizure, Stroke , Other Additional Past Medical Histor: alcoholism Past Surgical History: Angioplasty, Other Additional Past Surgical Histo: with stent placement, cytoscopy Alcohol Use: None Drug Use: None Adult General Chief Complaint Chief Complaint: WEAKNESS/GENERALIZED HPI HPI Patient is a 82 year old male who presents with recent admission to the hospital for unknown infection placed in retirement briefly since his arrival home over the past week he's become increasingly weak with difficulty with ambulation. No fever nausea vomiting diarrhea dysuria or frequency. No recent falls or trauma. Slight dry cough no leg swelling no chest pain. Review of Systems Review of Systems Constitutional: Denies fever or chills [] Eyes: Denies change in visual acuity, redness, or eye pain [] HENT: Denies nasal congestion or sore throat [] Respiratory: Denies cough or shortness of breath [] Cardiovascular: No additional information not addressed in HPI [] GI: Denies abdominal pain, nausea, vomiting, bloody stools or diarrhea [] : Denies dysuria or hematuria [] Musculoskeletal: Denies back pain or joint pain [] Integument: Denies rash or skin lesions [] Neurologic: Denies headache, focal weakness or sensory changes [] Endocrine: Denies polyuria or polydipsia [] Current Medications Current Medications Current Medications Medications (Trade) Dose Ordered Sig/Ruby Start Time Stop Time Status Last Admin Dose Admin Sodium Chloride 500 ml @ 500 mls/hr 1X ONCE 04/20/17 13:30 04/20/17 14:29 DC 04/20/17 13:30 500 MLS/HR Allergies Allergies Allergies Coded Allergies Type Severity Reaction Last Updated Verified No Known Drug Allergies 05/01/14 No Physical Exam Physical Exam Constitutional: Well developed, well nourished, no acute distress, non-toxic appearance. [] HENT: Normocephalic, atraumatic, bilateral external ears normal, oropharynx moist, no oral exudates, nose normal. [] Eyes: PERRLA, EOMI, conjunctiva normal, no discharge. [] Neck: Normal range of motion, no tenderness, supple, no stridor. [] Cardiovascular:Heart rate regular rhythm, no murmur [] Lungs & Thorax: Bilateral breath sounds clear to auscultation [] Abdomen: Bowel sounds normal, soft, no tenderness, no masses, no pulsatile masses. [] Skin: Warm, dry, no erythema, no rash. [] Back: No tenderness, no CVA tenderness. [] Extremities: No tenderness, no cyanosis, no clubbing, ROM intact, no edema. [] Neurologic: Alert and oriented X 3, normal motor function, normal sensory function, no focal deficits noted. [] Psychologic: Affect normal, judgement normal, mood normal. [] Current Patient Data Vital Signs Vital Signs Date Time Temp Pulse Resp B/P (MAP) Pulse Ox O2 Delivery O2 Flow Rate FiO2 04/20/17 15:49 72 18 146/76 (99) 97 04/20/17 14:53 Room Air 04/20/17 14:45 98.0 98.0 Lab Values Laboratory Tests Test 04/20/17 13:50 White Blood Count 6.4 x10^3/uL (4.0-11.0) Red Blood Count 4.88 x10^6/uL (4.30-5.70) Hemoglobin 14.2 g/dL (13.0-17.5) Hematocrit 42.9 % (39.0-53.0) Mean Corpuscular Volume 88 fL (79-100) Mean Corpuscular Hemoglobin 29 pg (25-35) Mean Corpuscular Hemoglobin Concent 33 g/dL (31-37) Red Cell Distribution Width 14.5 % (11.5-14.5) Platelet Count 158 x10^3/uL (140-400) Neutrophils (%) (Auto) 82 % (31-73) H Lymphocytes (%) (Auto) 12 % (24-48) L Monocytes (%) (Auto) 6 % (0-9) Eosinophils (%) (Auto) 1 % (0-3) Basophils (%) (Auto) 1 % (0-3) Neutrophils # (Auto) 5.2 x10^3uL (1.8-7.7) Lymphocytes # (Auto) 0.8 x10^3/uL (1.0-4.8) L Monocytes # (Auto) 0.4 x10^3/uL (0.0-1.1) Eosinophils # (Auto) 0.0 x10^3/uL (0.0-0.7) Basophils # (Auto) 0.0 x10^3/uL (0.0-0.2) Sodium Level 144 mmol/L (136-145) Potassium Level 3.9 mmol/L (3.5-5.1) Chloride Level 108 mmol/L (98-107) H Carbon Dioxide Level 27 mmol/L (21-32) Anion Gap 9 (6-14) Blood Urea Nitrogen 19 mg/dL (8-26) Creatinine 1.0 mg/dL (0.7-1.3) Estimated GFR (Cockcroft-Gault) 86.6 BUN/Creatinine Ratio 19 (6-20) Glucose Level 107 mg/dL (70-99) H Calcium Level 8.7 mg/dL (8.5-10.1) Total Bilirubin 0.4 mg/dL (0.2-1.0) Aspartate Amino Transferase (AST) 14 U/L (15-37) L Alanine Aminotransferase (ALT) 18 U/L (16-63) Alkaline Phosphatase 90 U/L (46-116) Troponin I Quantitative < 0.017 ng/mL (0.000-0.055) Total Protein 7.0 g/dL (6.4-8.2) Albumin 3.7 g/dL (3.4-5.0) Albumin/Globulin Ratio 1.1 (1.0-1.7) Laboratory Tests 04/20/17 13:50 Laboratory Tests 04/20/17 13:50 EKG EKG EKG EKG sinus bradycardia rate of 55 no STEMI QTC 433 my interpretation Radiology/Procedures Radiology/Procedures Chest x-ray negative per radiology report and my review of the interpretation Course & Med Decision Making Course & Med Decision Making Pertinent Labs and Imaging studies reviewed. (See chart for details) Blood work was unremarkable EKG chest x-ray negative. Urinalysis: Unable to obtaining only had 100 mL of urine in his bladder. I discussed this with the patient and and they're agreeable to going home and getting follow-up as an outpatient. Reexamination prior to dismissal patient feels improved with no complaints. Dragon Disclaimer Dragon Disclaimer This electronic medical record was generated, in whole or in part, using a voice recognition dictation system. Departure Departure Impression: Primary Impression: Generalized weakness Disposition: HOME, SELF-CARE Condition: STABLE Referrals: DEEPIKA KEYES MD (PCP) SCARLET WHALEN MD Apr 20, 2017 13:26
[2017-04-20] MEDS ORDERED: IV NORMAL SALINE 500ML BAG 500 ML IV ONE (13:30)
[2017-04-20 14:05] LABS: BASO % 1 % (0-3); EOS % 1 % (0-3); HEMATOCRIT 42.9 % (39.0-53.0); HEMOGLOBIN 14.2 g/dL (13.0-17.5); LYMPH # 0.8 x10^3/uL (1.0-4.8); LYMPH % 12 % (24-48); MEAN CORPUSCULAR HEMOGLOBIN 29 pg (25-35); MEAN CORPUSCULAR HGB CONC 33 g/dL (31-37); MEAN CORPUSCULAR VOLUME 88 fL (79-100); MONO % 6 % (0-9); NEUT % 82 % (31-73); PLATELET COUNT 158 x10^3/uL (140-400); RED BLOOD COUNT 4.88 x10^6/uL (4.30-5.70); RED CELL DISTRIBUTION WIDTH 14.5 % (11.5-14.5); WHITE BLOOD COUNT 6.4 x10^3/uL (4.0-11.0)
[2017-04-20 14:19] LABS: CALCIUM 8.7 mg/dL (8.5-10.1); GFR 86.6; POTASSIUM 3.9 mmol/L (3.5-5.1)
[2017-04-20 14:25] LABS: ALBUMIN 3.7 g/dL (3.4-5.0); ALBUMIN/GLOBULIN RATIO 1.1 (1.0-1.7); TOTAL BILIRUBIN 0.4 mg/dL (0.2-1.0)
--- NOTE | 2017-04-20 14:26 | EKG ---
[facility] [address] [place] [address] Test Date: 2017-04-20 Test Time: 14:09:17 Pat Name: JOSE EDUARDO POSADA Department: Room: Gender: M [employer] In[employer]: : [id number] Requested By: SCARLET WHALEN Order Number: [id number] Reading MD: Roderick Anguiano Measurements Intervals [place] Rate: 55 P: IA: QRS: -34 QRSD: 118 T: 19 QT: 450 QTc: 433 Interpretive Statements SR RBBB LAD Electronically Signed On 04-24-2017 9:57:23 CDT by Roderick Anguiano
--- NOTE | 2017-04-20 15:00 | RAD ---
Portable chest, 04/20/2017: History: Weakness with cough Comparison is made to a study from 03/10/2017. The heart size and pulmonary vascularity are normal. There is calcific plaquing of the aorta. There are minimal hazy opacities projected over the left mid chest laterally. The appearance suggests infiltrate versus overlying soft tissue artifact. The right chest is clear. There is no evidence of pleural fluid. IMPRESSION: Probable mild left lung infiltrate.
[2017-04-20 15:49] VITALS: BP 146/76
== END 2017-04-20 15:56 | disposition home or self-care (01) ==
LOC: ER 12:33
DX: R53.1 Weakness (principal); R05 Cough; E11.9 Type 2 diabetes mellitus without complications; I10 Essential (primary) hypertension; Z86.73 Personal history of transient ischemic attack (TIA), and cerebral infarction without residual deficits; I25.2 Old myocardial infarction; Z95.5 Presence of coronary angioplasty implant and graft; F10.10 Alcohol abuse, uncomplicated
CPT/HCPCS: 36415; 51702; 71010; 80053; 84484; 85025; 93005; 96360; 99285; J7040

== ENCOUNTER 2018-02-01 18:25 | Emergency (ER) | payer MEDICARE ==
[2018-02-01 21:57] LABS: BASO % 0 % (0-3); EOS % 0 % (0-3); HEMATOCRIT 42.3 % (39.0-53.0); HEMOGLOBIN 14.4 g/dL (13.0-17.5); LYMPH # 0.4 x10^3/uL (1.0-4.8); LYMPH % 2 % (24-48); MEAN CORPUSCULAR HEMOGLOBIN 30 pg (25-35); MEAN CORPUSCULAR HGB CONC 34 g/dL (31-37); MEAN CORPUSCULAR VOLUME 89 fL (79-100); MONO # 1.3 x10^3/uL (0.0-1.1); MONO % 9 % (0-9); NEUT # 13.7 x10^3uL (1.8-7.7); NEUT % 89 % (31-73); PLATELET COUNT 142 x10^3/uL (140-400); RED BLOOD COUNT 4.76 x10^6/uL (4.30-5.70); RED CELL DISTRIBUTION WIDTH 14.2 % (11.5-14.5); WHITE BLOOD COUNT 15.4 x10^3/uL (4.0-11.0)
[2018-02-01] MEDS ORDERED: 0.9 % SOD CHL for STERILE FIELD 10 ML DISP.SYRIN. (21:59)
[2018-02-01 22:00] LABS: ADD MAN DIFF? YES
[2018-02-01 22:06] LABS: ANION GAP 16 (6-14); BLOOD UREA NITROGEN 84 mg/dL (8-26); BUN/CREATININE RATIO 11 (6-20); CALCIUM 9.2 mg/dL (8.5-10.1); CARBON DIOXIDE 23 mmol/L (21-32); CHLORIDE 100 mmol/L (98-107); CREATININE 7.4 mg/dL (0.7-1.3); GFR 8.6; GLUCOSE 139 mg/dL (70-99); POTASSIUM 4.9 mmol/L (3.5-5.1); SODIUM 139 mmol/L (136-145)
[2018-02-01 22:11] LABS: ALBUMIN 3.4 g/dL (3.4-5.0); ALK PHOS 67 U/L (46-116); ALT (SGPT) 14 U/L (16-63); AST (SGOT) 10 U/L (15-37); TOTAL BILIRUBIN 0.6 mg/dL (0.2-1.0); TOTAL PROTEIN 6.8 g/dL (6.4-8.2)
[2018-02-01 22:14] LABS: BILIRUBIN,URINE NEGATIVE (NEG); COLOR,URINE AMBER; GLUCOSE,URINE NEGATIVE (NEG); NITRITE,URINE NEGATIVE (NEG); PH,URINE 5.5; PROTEIN,URINE NEGATIVE (NEG-TRACE); UROBILINOGEN,URINE 0.2 mg/dL (0.2 mg/dL)
[2018-02-01 22:20] LABS: % LYMPHS 2 % (24-48); % MONOS 7 % (0-10); % SEGS 91 % (35-66); PLT ESTIMATE ADEQUATE (ADEQUATE)
[2018-02-01 22:22] LABS: BACTERIA,URINE 0 /HPF (0-FEW); CLARITY,URINE HAZY; RBC,URINE TNTC /HPF (0-2)
[2018-02-01 22:23] LABS: HYALINE CASTS, URINE MODERATE /HPF
== END 2018-02-01 23:41 | disposition home or self-care (01) ==
LOC: ER 18:25
DX: R33.9 Retention of urine, unspecified (principal); I12.9 Hypertensive chronic kidney disease with stage 1 through stage 4 chronic kidney disease, or unspecified chronic kidney disease; E11.22 Type 2 diabetes mellitus with diabetic chronic kidney disease; N18.9 Chronic kidney disease, unspecified; Z86.73 Personal history of transient ischemic attack (TIA), and cerebral infarction without residual deficits; Z85.46 Personal history of malignant neoplasm of prostate; Z79.4 Long term (current) use of insulin
CPT/HCPCS: 36415; 51702; 80053; 81001; 85007; 85025; 99285-25